=== PATIENT | female | born 1995 | race Caucasian/White ===

== ENCOUNTER 2018-07-18 20:48 | Outpatient (RCR) | payer OTHER, SELFPAY | END 2018-07-30 23:59 | disposition home or self-care (01) | LOC: NCHCN 20:48 | PROVIDERS: PCP Specialist/Technologist Athletic Trainer; Visit Provider Family Medicine | DX: N30.10 Interstitial cystitis (chronic) without hematuria (principal); N32.89 Other specified disorders of bladder | CPT/HCPCS: 87086 ==

== ENCOUNTER 2019-12-02 15:21 | Outpatient (CLI) | payer OTHER, SELFPAY ==
[2019-12-02 17:02] LABS: TSH (W/Ref FT4) 1.01 uIU/mL (0.36-3.74)
[2019-12-03 05:38] LABS: Vitamin D 25 Total 41.7 ng/ml (30-100)
== END 2019-12-02 15:41 ==
PROVIDERS: PCP Family Medicine; Visit Provider Nurse Practitioner Family
DX: F32.9 Major depressive disorder, single episode, unspecified (principal)
CPT/HCPCS: 36415; 82306; 84443

== ENCOUNTER 2020-03-24 02:56 | Outpatient (CLI) | payer OTHER, SELFPAY ==
[2020-03-24 15:01] LABS: Kit/Specimen SENT
[2020-03-24 15:32] LABS: Abs Immature Grans 0.02 k/cumm (0.0-0.09); Absolute Basophil Count 0.01 k/cumm (0.0-0.2); Absolute Lymphocyte Count 2.05 k/cumm (1.2-3.4); Absolute Monocyte Count 0.76 k/cumm (0.11-0.7); Basophils % 0.1; Eosinophils % 2.1; HCT 39.2 % (36.0-46.0); HGB 13.4 g/dL (12.0-15.5); Immature Grans % 0.2 %; Lymphocytes % 16.9; Mean Corp. HGB Concentration 34.2 g/dL (32.0-36.0); Mean Corpuscular Hemoglobin 28.9 pg (27.0-33.0); Mean Corpuscular Volume 84.7 fL (80-95); Mean Platelet Volume 10.8 fL (8.0-11.0); Monocytes % 6.3; Neutrophils % 74.4; Platelet Count 309 x1000/uL (130-400); RBC 4.63 m/cumm (4.00-5.20); RBC Distribution Width 12.5 % (11.7-14.6); White Blood Cell Count 12.14 k/cumm (4.4-10.8)
[2020-03-24 15:54] LABS: TSH (W/Ref FT4) 0.74 uIU/mL (0.36-3.74)
[2020-03-24 16:04] LABS: Absolute Eosinophil Count 0.25 k/cumm (0.0-0.7); Absolute Neutrophil Count 9.03 k/cumm (1.2-6.7)
[2020-03-24 17:11] LABS: *AMPHETAMINES SCREEN URINE Negative (Negative); *BARBITURATES SCREEN URINE Negative (Negative); *BENZODIAZEPINES SCREEN URINE Negative (Negative); Cannabinoids THC Negative (Negative); Cocaine Screen,Urine Negative (Negative); METHADONE URINE SCREEN Negative (Negative); OPIATES URINE SCREEN Negative (Negative)
[2020-03-24 17:13] LABS: Tricyclic Antidepressants POSITIVE (Negative)
[2020-03-25 09:36] LABS: Rubella IgG Ab (UVM) Negative (See Note); Varicella IgG Antibody Positive (See Note)
[2020-03-25 09:49] LABS: Hepatitis B Surface Ag Negative (Negative)
[2020-03-25 10:39] LABS: HIV-1/2 Ag & Ab Screen Negative (Negative); Hepatitis C Ab w Rflx HCV PCR Negative (Negative)
[2020-03-25 15:52] LABS: Chlamydia Result Negative (Negative); GC Result Negative (Negative)
[2020-03-26 14:13] LABS: Syphilis Total Ab w/Reflex Nonreactive (Nonreactive)
[2020-03-29 18:49] LABS: Buprenorphine Negative; Norbuprenorphine Negative
[2020-03-30 12:11] LABS: Specimen WB Whole Blood
[2020-03-31 14:29] LABS: Result Summary NEGATIVE; Specimen WB Whole Blood
== END 2020-03-24 03:16 ==
PROVIDERS: PCP Family Medicine; Visit Provider Advanced Practice Midwife
DX: Z34.91 Encounter for supervision of normal pregnancy, unspecified, first trimester (principal); Z11.3 Encounter for screening for infections with a predominantly sexual mode of transmission; Z11.4 Encounter for screening for human immunodeficiency virus [HIV]; Z11.59 Encounter for screening for other viral diseases; Z01.84 Encounter for antibody response examination; Z36.89 Encounter for other specified antenatal screening
CPT/HCPCS: 36415; 80307; 81329; 86787; 86803; 86850; 86900; 86901; 87340; 87389; 87491; 87591; 81220; 84443; 85025; 86762; 86780; 87086; 87480; 87510; 87660

== ENCOUNTER 2020-05-12 01:03 | Outpatient (CLI) | payer OTHER, SELFPAY ==
--- NOTE | 2020-05-12 06:30 | DI.US_ITS ---
EXAM: US OB 2-3 TRIMESTER CLINICAL HISTORY: 18 wk anatomy survey,z34.90. TECHNIQUE: Transabdominal obstetrical ultrasound performed. COMPARISON: US PELVIS TRANSVAG from 05/17/2016 FINDINGS: Transabdominal obstetrical ultrasound performed. FINDINGS: Number of fetuses: One. position: Cephalic heart rate: 141 bpm. Placental location: Anterior and to the left no evidence of previa. BIOMETRIC DATA: Composite Age: 18 weeks 2 days EDC: 10/11/2020 Amniotic fluid index: Visually, amount of fluid is within normal limits. ANATOMICAL SURVEY: The visualize anatomy are within normal limits. The four-chamber heart, justin tricular outflow tracts, nose and lips were not visualized. The patient is scheduled to return on for completion of the anatomic survey. BPD: 4.2cm HC: 15.7cm AC: 12.1cm FL: 2.7cm Cisterna Magna: 3.3 mm Cerebellum: 1.8 cm IMPRESSION: 1. Single live intrauterine gestation as above. 2. The patient is scheduled to return on 05/20/2020 for completion of the anatomic survey with i maging of the heart, face and right upper extremity. These structures could not be visualized on the date of this examination due to positioning. DATA REPOSITORY:
== END 2020-05-12 01:23 ==
PROVIDERS: PCP Family Medicine; Visit Provider Advanced Practice Midwife
DX: Z34.92 Encounter for supervision of normal pregnancy, unspecified, second trimester (principal); Z3A.18 18 weeks gestation of pregnancy
CPT/HCPCS: 76805

== ENCOUNTER 2020-05-12 03:01 | Outpatient (CLI) | payer OTHER, SELFPAY ==
[2020-05-13 17:11] LABS: Calculated age at EDD 24 years; Cigarette smoking status non-Smoker; GA used in risk estimate Scan estimate; IVF Pregnancy No; Initial or repeat testing Initial testing; Insulin dependent diabetes No; Maternal Weight 178 lbs; Number of Fetuses 1; Physician Phone Number 802-748-7300; Prev Pregnancy w/NTD No; RECOMMENDED FOLLOW UP None.; Results Summary Normal risk
== END 2020-05-12 03:21 ==
PROVIDERS: PCP Family Medicine; Visit Provider Advanced Practice Midwife
DX: Z34.92 Encounter for supervision of normal pregnancy, unspecified, second trimester (principal)
CPT/HCPCS: 36415; 82105

== ENCOUNTER 2020-05-14 08:57 | Emergency (ER) | payer OTHER, SELFPAY ==
--- NOTE | 2020-05-14 08:58 | ED.GENADUL_ITS ---
Discharge Plan Disposition Patient Disposition: HOME Condition: Good Discharge Details Chief Complaint: Cellulitis Clinical Impression: Pilonidal cyst Primary Care Provider: Karma Hunt V ED Provider: Yamilet Gutierres Home Meds and New Rx's Prescriptions: Continued metronidazole 500 mg tablet 500 mg PO BID Qty: 14 RF: 1 metronidazole 0.75 % cream 1 applic TP DAILY Qty: 1 RF: 1 prenat.vits,jim,zfa-cuqj-wmtqd Tablet 1 tab PO DAILY RF: 0 ondansetron HCl [Zofran] 8 mg tablet 8 mg PO Q8H Qty: 30 RF: 3 Discharge Instructions Instructions: Pilonidal Cyst (ED) Additional Instructions: Please keep the areas clean as possible. You may continue to cover with gauze. Please perform sits baths as discussed for the 5 times daily. Please monitor area closely for signs infection including redness, warmth, drainage, increased pain, fever/chills. If develop these or the new/worsening symptoms to seek care urgently once again. Otherwise, I would like for you to follow-up with women's wellness at the beginning of the week. Please call Saturday to schedule appointment. Stand Alone Forms: Work Release Referrals: Sandy Rahman MD [ [facility] STAFF PHYSICIAN] - Discharge Data Discharge Date/Time-TO BE ENTERED AT DEPARTURE: 05/14/20 10:41 Medical Decision Making Patient is a pleasant 25-year-old female presenting today with chief complaint of buttock pain. She reports the pain began approximately 4 days ago as progressively increasing. She indicates the upper aspect of her intergluteal cleft. Limits. She has a focal area of swelling that is displacing the left slightly. The area of swelling and fluctuance is 1 cm in diameter. She is exquisitely tender over this area and states she been having difficulty forming her activities of daily living secondary to this discomfort. She states she did take some Tylenol yesterday, has not taken any today. Patient is 19 weeks gestation. She reports normal thus far with no abdominal discomfort, cramping, vaginal bleeding. heart tones have by nursing staff to be in the 140s. Patient's exam and history is most concerning for an abscess. It does not appear to have any cellulitis surrounding. I did evaluate the area with ultrasound and I see area of swelling but I do not speciate any well-d efined area that is encapsulated. I am concerned for infection given the patient's severity of discomfort and feel that I&D of this area is most appropriate. I discussed this at length with the patient. She was understanding measures to proceed Using standard sterile technique, the area in question was prepped with chlorhexidine. Anesthetized the area with 1% lidocaine, she tolerated this well I did give sufficient anesthesia. Attempted to aspirate with needle was unsuccessful. Small incision with an 11 blade was then made a small amount of fluid was expressed from this area. Patient and I did discuss post I&D care in depth. I have encouraged close follow-up with women's wellness. She was given strict return precautions. As I do not see any evidence of surrounding cellulitis, do not feel that antibiotics are warranted at this point. All of her questions and concerns were addressed and she is in agreement this plan. HPI General Mode of arrival: ambulatory . Date/Time Provider Initiated Documentation: 05/14/20 08:57 . Limitations to Documentation: no limitations . Information obtained by: patient and RN notes reviewed . History of Present Illness 25 year old F presents to the emergency department with the chief complaint of buttock pain and swelling, described as moderate, with intensity rated at 5. Quality is described as aching, and is localized to the buttocks and left (fairly midline). Patient reports no radiation. Patient started experiencing this day(s) (3) and it has been constant. Immobilization improves symptom(s), (being off of it) Movement worsens symptoms . Patient notes other (no abdominal pain, vaginal bleeding or c ramping); denies fever/chills, loss of appetite and nausea/vomiting. Patient did receive the following treatments prior to arrival, none Related Data Home Medications Medication Instructions Recorded Confirmed prenat.vits,jim,tco-pfah-nmrnd 1 tab PO DAILY 03/09/20 05/14/20 ondansetron HCl 8 mg tablet 8 mg PO Q8H #30 tab 04/21/20 05/14/20 metronidazole 0.75 % topical cream 1 applic TP DAILY #1 gm 05/12/20 05/14/20 metronidazole 500 mg tablet 500 mg PO BID #14 tab 05/12/20 05/14/20 Previous Rx's Medication Instructions Recorded ondansetron HCl 8 mg tablet 8 mg PO Q8H #30 tab 04/21/20 metronidazole 0.75 % topical cream 1 applic TP DAILY #1 gm 05/12/20 metronidazole 500 mg tablet 500 mg PO BID #14 tab 05/12/20 Allergies Allergy/AdvReac Type Severity Reaction Status Date / Time No Known Drug Allergies Allergy Unverified 05/14/20 09:04 Review of Systems Constitutional Constitutional: Reports as per HPI, Denies chills and Denies fever(s) Gastrointestinal Gastrointestinal: Reports as per HPI Genitourinary Genitourinary: Reports as per HPI Musculoskeletal Musculoskeletal: Reports as per HPI Integumentary/Breasts Skin/Breast: Reports as per HPI, Reports skin pain and Reports skin swelling Neurologic Neurologic: Reports as per HPI, Denies sensory deficit and Denies paresthesias [facility] Medical History (Updated 05/14/20 @ 10:10 by MARINO Tavarez) Anxiety (Chronic) Depression (Chronic) Interstitial cystitis (Acute) Recurrent tonsillitis Surgical History (System 02/25/20 @ 11:35 by Hue Pollard) Tonsillectomy age 18yr wisdom teeth age 19yr Family History (Updated 03/24/20 @ 13:15 by Radha Ge CNM) Maternal Uncle Throat cancer Maternal Aunt Thyroid cancer Other FHx: throat cancer Social History Smoking/Tobacco Use Status: Never Alcohol Intake: former Drug use: Never Substance use type: does not use Do you feel safe at home: Yes Do you feel safe in your relationship?: Yes History History 1 Para 0 Hx # Term Pregnancies 0 Multiple births 0 Hx # Pregnancies 0 Ectopic pregnancies 0 AB induced 0 Hx Number of Living Children 0 AB spontaneous 0 Exam Const General: cooperative, healthy appearing, comfortable, no acute distress and well developed Nutritional Appearance: average body habitus and well nourished Orientation: alert and awake Resp Effort & Inspection: normal respiratory effort, able to speak in complete sentences and no respiratory distress Cardio Rate: regular rate Rhythm: regular rhythm GI Inspection: normal to inspection (normal for gestational age) Back/Spine/Pelvis Back/spine/pelvis image: 1. Focal area of swelling and fluctuance approximately 1 cm in diameter. This is quite tender to the patient. No erythema, warmth, discharge. Skin General skin exam: no erythema and fluctuance Neuro General: patient alert and patient awake Cognition: normal cognition Speech: speech normal Gait: normal gait Sensory Exam: no sensory deficits noted Psych Appearance: grossly normal and well kempt Mental Status: mental status grossly normal Speech and Movement: speech and movement normal Procedures Abscess I/D Site: Lorin-rectal Side (if applicable): Left Local Anesthetic: Lidocaine 1% Amount of anesthesia used (mL): 3 Technique: Needle Aspiration and Incised with #11 Blade Amount of fluid expressed (mL): 1 Irrigation: Yes Packing used?: None Complications: Other (none)
[2020-05-14 09:01] VITALS: BP 110/70; PULSE 90; RESP 18; TEMP 36.6; O2SAT 97
[2020-05-14] MEDS: Acetaminophen 500 MG TAB 1000 MG PO (09:36)
[2020-05-14 10:20] VITALS: BP 114/62; PULSE 90; RESP 16; TEMP 37; O2SAT 99
== END 2020-05-14 10:41 | disposition home or self-care (01) ==
PROVIDERS: Emergency Provider Physician Assistant; PCP Family Medicine
DX: L05.91 Pilonidal cyst without abscess (principal); Z3A.19 19 weeks gestation of pregnancy
CPT/HCPCS: 10060

== ENCOUNTER 2020-05-16 12:41 | Day surgery (SDC) | payer OTHER, SELFPAY ==
[2020-05-16] VITALS (14 sets, daily range): BP systolic 75–115; BP diastolic 24–68; PULSE 83–122; RESP 16–29; TEMP 36.7–37.9; O2SAT 96–99
--- NOTE | 2020-05-16 13:15 | DI.US_ITS ---
EXAM: US SOFT TISS BUTTOCK/PERINEUM CLINICAL HISTORY: pilonidal cyst. TECHNIQUE: Ultrasound was performed using standard protocol. COMPARISON: No exams were available for comparison FINDINGS: Sonographic assessment utilizing grayscale and color Doppler imaging was performed and targeted to th e area of clinical concern. In the subcutaneous fat of the gluteal crease, there is a hypoechoic area measuring 2.9 by 6.2 x 2 cm . It is avascular. The findings are consistent with a pilonidal cyst. Superimposed abscess cannot be excluded. IMPRESSION: Pilonidal cyst. DATA REPOSITORY:
--- NOTE | 2020-05-16 13:23 | ED.GENADUL_ITS ---
Discharge Plan Disposition Patient Disposition: [facility] INPATIENT Condition: Stable Discharge Details Chief Complaint: Cellulitis Clinical Impression: Pilonidal cyst Attending Provider: Rebecca Anderson Primary Care Provider: Karma Hunt V ED Provider: Selena Ruiz Discharge Data Discharge Date/Time-TO BE ENTERED AT DEPARTURE: 05/16/20 16:29 Medical Decision Making At this time labs ordered including CBC, CMP, lactate blood cultures and an ultrasound of soft tissue to evaluate possible abscess. IV ceftriaxone ordered. Will consult with DOG LICENSE OFFICER SUPERVISOR and possibly general surgery regarding patient. 1446: Spoke with Dr. Rahman with DOG LICENSE OFFICER SUPERVISOR on-call regarding patient and ultrasound results and labs discussed with her, she states that patient should be fine to undergo local anesthesia or even general anesthesia due to size of f luid collection. She reports that she will be available for consult for any further questions or concerns. Will page general surgery. Dr. Anderson continuous improvement manager. EXAM: US SOFT TISS BUTTOCK/PERINEUM CLINICAL HISTORY: pilonidal cyst. TECHNIQUE: Ultrasound was performed using standard protocol. COMPARISON: No exams were available for comparison FINDINGS: Sonographic assessment utilizing grayscale and color Doppler imaging was performed and targeted to the area of clinical concern. In the subcutaneous fat of the gluteal crease, there is a hypoechoic area measuring 2.9 by 6.2 x 2 cm. It is avascular. The findings are consistent with a pilonidal cyst. Superimposed abscess cannot be excluded. IMPRESSION: Pilonidal cyst. 1454: Spoke with Dr. Hill with general surgery who agrees to come and evaluate patient in department and approximately 20 minutes. 1548: Dr. Anderson general surgeon here in department for patient evaluation, she does report that patient will go to the OR and possibly be admitted from there. Patient agrees to do spinal anesthesia and I&D of pilonidal cyst. Plan is for patient to go to the OR. Blood pressure per RN report is 92 systolic while side-lying, 1 L normal saline IV bolus ordered and is infusing prior to patient being discharged from the ER to OR. Differential diagnosis includes perirectal abscess versus simple pilonidal cyst. HPI General Mode of arrival: ambulatory . Date/Time Provider Initiated Documentation: 05/16/20 13:08 . Limitations to Documentation: no limitations . Information obtained by: patient and old records reviewed . HPI Narrative: 25-year-old female presents the ER chief complaint of pilonidal cyst which is gotten worse, worsening erythema and tenderness since being seen on Saturday. Patient was seen here on Saturday and an incision was made an attempt to drain with little output. Patient is approximately 19 weeks she is a prima . Denies any problems with bowel movements or dysuria no vaginal discharge or vaginal bleeding. She reports diaphoresis last night sweating but did not take her temperature. She reports never having a cyst in this area before but has had an abscess to her arm in the past. Related Data Home Medications Medication Instructions Recorded Confirmed prenat.vits,jim,vda-pmiz-vavse 1 tab PO DAILY 03/09/20 05/16/20 ondansetron HCl 8 mg tablet 8 mg PO Q8H #30 tab 04/21/20 05/16/20 metronidazole 0.75 % topical cream 1 applic TP DAILY #1 gm 05/12/20 05/16/20 metronidazole 500 mg tablet 500 mg PO BID #14 tab 05/12/20 05/16/20 acetaminophen 1,000 mg PO Q6H PRN 05/16/20 05/16/20 Previous Rx's Medication Instructions Recorded ondansetron HCl 8 mg tablet 8 mg PO Q8H #30 tab 04/21/20 metronidazole 0.75 % topical cream 1 applic TP DAILY #1 gm 05/12/20 metronidazole 500 mg tablet 500 mg PO BID #14 tab 05/12/20 Allergies Allergy/AdvReac Type Severity Reaction Status Date / Time No Known Drug Allergies Allergy Unverified 05/16/20 13:17 General Stated Complaint: RashLesion BRITTANY: 3 Review of Systems Narrative: Constitutional: Negative for weight loss, alert and oriented, well groomed, normal body habitus, appears comfortable. Positive diaphoresis. HEENT: Denies trauma, headaches, blurry vision, nasal discharge, sore throat, trouble swallowing. Chest: Denies chest pain, palpitations, irregular rhythm, hypertension. Respiratory: Denies Shortness of breath, cough, hemoptysis. GI: Denies abdominal pain, nausea, vomiting, diarrhea, constipation. : Denies dysuria, hematuria, flank pain, rectal bleeding. Denies any mucus in her stool. Reports tenderness noted to her coccyx area and intergluteal folds status post I&D on Saturday. Neuro: Denies dizziness, blurry vision, weakness, syncope, headache or facial numbness. Hematologic: Denies easy bruising, intolerance to heat or cold, hair loss. [facility] Medical History Anxiety (Chronic) Depression (Chronic) Interstitial cystitis (Acute) Recurrent tonsillitis Surgical History Tonsillectomy age 18yr wisdom teeth age 19yr Family History Maternal Uncle Throat cancer Maternal Aunt Thyroid cancer Other FHx: throat cancer Social History Smoking/Tobacco Use Status: Never Alcohol Intake: former Drug use: Never Substance use type: does not use Do you feel safe at home: Yes Do you feel safe in your relationship?: Yes History History 1 Para 0 Hx # Term Pregnancies 0 Multiple births 0 Hx # Pregnancies 0 Ectopic pregnancies 0 AB induced 0 Hx Number of Living Children 0 AB spontaneous 0 Exam Narrative Exam Narrative: Constitutional: Alert and oriented x3. Appears stated age. Normal body habitus. Head: Normocephalic, no trauma. Eyes: Pupils PERRLA, Red reflex noted, EOM's intact. Eyelids symmetrical without lesions, discharge, or swelling. ENT: Bilateral TM's WNL, External ear normal to inspection, no mastoid TTP, swelling, or erythema, Nasal turbinates WNL, no nasal discharge. Normal dentition, Posterior pharynx WNL, no exudate. Chest: RRR, Normal S1, S2, distal pulses intact. Resp: Lungs clear to auscultation bilaterally, no wheezes, rales, or rhonchi. Abdomen: Consistent with 19-week Musculoskeletal: Normal gait, 5/5 strength to all four extremities. Skin: Area of induration noted to the coccyx there is erythema extending up towards the patient's sacrum which patient reports is new does have tenderness with palpation. No obvious area of fluctuance palpated no drainage noted. Capillary refill less than 2 sec. Neurologic: Cranial nerves II-XII intact. Alert and oriented x 3. DTR's intact. Hematologic/Lymphatic: No ecchymosis, no lymphadenopathy. Course Vital Signs Vital signs: Vital Signs Temperature 36.7 C 05/16/20 13:00 Pulse 111 H 05/16/20 13:00 Respiratory Rate 16 05/16/20 13:00 Blood Pressure 100/54 L 05/16/20 13:00 Pulse Oximetry 99 05/16/20 13:00 Temperature 36.7 C 05/16/20 13:00 Temperature Source Skin 05/16/20 13:00 Pulse 111 H 05/16/20 13:00 Respiratory Rate 16 05/16/20 13:00 Respiratory Effort 05/16/20 13:05 Blood Pressure 100/54 L 05/16/20 13:00 Pulse Oximetry 99 05/16/20 13:00 Oxygen Delivery Method Room Air 05/16/20 13:00 Oxygen Flow Rate 0 05/16/20 13:00 Pain Level 9 05/16/20 13:00 Lab/Test Results Lab/Test Results: 05/16/20 13:19 Blood Blood Culture - Pending 05/16/20 13:19 Blood Blood Culture - Pending
[2020-05-16 14:23] LABS: Lactate 0.7 mmol/L (0.6-1.4)
[2020-05-16 14:26] LABS: Abs Immature Grans 0.07 10^3/uL (0.0-0.06); Absolute Basophil Count 0.01 10^3/uL (0.0-0.2); Absolute Eosinophil Count 0.01 10^3/uL (0.0-0.7); Absolute Monocyte Count 0.89 10^3/uL (0.1-0.8); Absolute Neutrophil Count 10.99 10^3/uL (1.2-6.7); Basophils % 0.1; Eosinophils % 0.1; HCT 32.5 % (36.0-46.0); HGB 11.1 g/dL (11.2-15.7); Immature Grans % 0.5; MCH 29.3 pg (27.0-33.0); MCHC 34.2 % (32.0-36.0); MCV 85.8 fL (80-95); MPV 10.8 fL (8.0-11.0); Monocytes % 6.9; Neutrophils % 85.4; Nucleated RBC 0 %; Platelet Count 207 10^3/uL (130-400); RBC 3.79 10^6/uL (3.93-5.22); RDW 12.9 % (11.7-14.6); RDW-SD 40.3 fL; WBC 12.87 10^3/uL (4.4-10.8)
[2020-05-16 14:36] LABS: Anion Gap 13.2 mmol/L (3-11); BUN 6 mg/dL (7-18); CO2 19.8 mmol/L (21.0-32.0); CREATININE 0.51 mg/dL (0.55-1.02); Calcium 8.5 mg/dL (8.5-10.1); Chloride 104 mmol/L (98-107); Glucose 97 mg/dL (74-106); Potassium 3.1 mmol/L (3.5-5.1); Sodium 137 mmol/L (136-145)
[2020-05-16] MEDS: cefTRIAXone 1 GM/50 ML BAG IVPB (14:51)
[2020-05-16] MEDS: Normal Saline 1,000 ML 1000 ML IV (16:19)
--- NOTE | 2020-05-16 16:28 | W.PM.HP.N ---
Date of service: 05/16/20 Time of Service: 16:28 Assessment and Plan Assessment and plan (1) Pilonidal abscess: Status: Acute Assessment and plan: Her presentation is unusual in that she has no cutaneous changes. With the US findings of a deep abscess and her degree of pain, I recommend I and D in the operating room. Will proceed with spinal due to . The risks of bleeding, recurrence discussed. The wound will need to be left open for packing. She agrees to proceed. History of Present Illness Narrative: This patient returned to the ER with significant pain at the top of the gluteal cleft. She has been unable to sleep. She presented two days ago with similar pain. Limited attempt at I and D did not yield any drainage. US today shows and 6cm SQ fluid collection in the region. Review of Systems All systems reviewed & are unremarkable except as noted in HPI and below PFSH Medical History Anxiety (Chronic) Depression (Chronic) Interstitial cystitis (Acute) Recurrent tonsillitis Surgical History Tonsillectomy age 18yr wisdom teeth age 19yr Family History Maternal Uncle Throat cancer Maternal Aunt Thyroid cancer Other FHx: throat cancer Social History Smoking/Tobacco Use Status: Never Alcohol Intake: former Drug use: Never Substance use type: does not use Do you feel safe at home: Yes Do you feel safe in your relationship?: Yes History History 1 Para 0 Hx # Term Pregnancies 0 Multiple births 0 Hx # Pregnancies 0 Ectopic pregnancies 0 AB induced 0 Hx Number of Living Children 0 AB spontaneous 0 Meds Home Medications and Allergies Home Medications Medication Instructions Recorded Confirmed Type prenat.vits,jim,nvl-xanj-eggcg 1 tab PO DAILY 03/09/20 05/16/20 History ondansetron HCl 8 mg tablet 8 mg PO Q8H #30 tab 04/21/20 05/16/20 Rx metronidazole 0.75 % topical cream 1 applic TP DAILY #1 gm 05/12/20 05/16/20 Rx metronidazole 500 mg tablet 500 mg PO BID #14 tab 05/12/20 05/16/20 Rx acetaminophen 1,000 mg PO Q6H PRN 05/16/20 05/16/20 History Allergies Allergy/AdvReac Type Severity Reaction Status Date / Time No Known Drug Allergies Allergy Unverified 05/16/20 13:17 Exam Narrative Exam Narrative: Appears flushed, uncomfortable Extremely tender to palpation of soft tissue at top of gluteal cleft, more prominent on the left side. No cellulitis or pointing abscess present Prior I and D site healed Results Labs Result diagrams: 05/16/20 14:09 05/16/20 14:09 Labs: Laboratory Results - last 24 hr 05/16/20 05/16/20 05/16/20 14:09 14:09 14:09 WBC 12.87 H RBC 3.79 L Hgb 11.1 L Hct 32.5 L MCV 85.8 MCH 29.3 MCHC 34.2 RDW 12.9 Plt Count 207 MPV 10.8 Immature Gran % 0.5 Neutrophils % 85.4 Lymphocytes % 7.0 Monocytes % 6.9 Eosinophils % 0.1 Basophils % 0.1 Absolute Neutrophils 10.99 H Absolute Lymphocytes 0.90 L Absolute Monocytes 0.89 H Absolute Eosinophils 0.01 Absolute Basophils 0.01 Sodium 137 Potassium 3.1 L Chloride 104 Carbon Dioxide 19.8 L Anion Gap 13.2 H BUN 6 L Creatinine 0.51 L Estimated GFR/1.73 m2 >= 60.00 Glucose 97 Lactate 0.7 Calcium 8.5 Last Vital Signs Temp 99.3 F 05/16/20 16:08 Pulse 107 H 05/16/20 16:08 Resp 18 05/16/20 16:08 BP 92/50 L 05/16/20 16:08 Pulse Ox 97 05/16/20 16:08 COVID-19 Screening Have you,or household,traveled outside [place] in last 14 days?: No Had IN PERSON contact w/suspected or confirmed C-19 person: No
--- NOTE | 2020-05-16 16:41 | PDOC.DSDIS_ITS ---
Discharge Plan Disposition Patient Disposition: HOME Condition: Good Discharge Details Chief Complaint: Cellulitis Clinical Impression: Pilonidal cyst Reason For Visit: Incision and drainage of pilonidal abscess Attending Provider: Rebecca Anderson Primary Care Provider: Karma Hunt V ED Provider: Selena Ruiz Home Meds and New Rx's Prescriptions: New amoxicillin-pot clavulanate [Augmentin] 875-125 mg tablet 1 tab PO BID Qty: 10 RF: 0 Continued metronidazole 500 mg tablet 500 mg PO BID Qty: 14 RF: 1 metronidazole 0.75 % cream 1 applic TP DAILY Qty: 1 RF: 1 prenat.vits,jim,rap-apnl-knyyn Tablet 1 tab PO DAILY RF: 0 ondansetron HCl [Zofran] 8 mg tablet 8 mg PO Q8H Qty: 30 RF: 3 acetaminophen 500 mg Capsule 1,000 mg PO Q6H PRNRF: 0 Discharge Instructions Additional Instructions: The top gauze can be replaced as needed. A small amount of bleeding is expected. Pack the wound daily using sterile Q tips and the packing gauze provided. You may remove the packing and allow water from the shower to run into the wound. Call for any concerns including fever or increased pain. Walking and stairs are fine. Do not drive if on narcotic pain meds or if limited by pain. May use Tylenol for pain control. Ice is also an option. The maximum dose for Tylenol is 4000 mg/day. If concerned about constipation, you may use a stool softener or milk of magnesia. Referrals: Rebecca Anderson MD [ [facility] STAFF PHYSICIAN] - (Call the office for an appointment this or Saturday ) Activity:: Activity as Tolerated Remove Dressings/Wound Care:: 24 hours Shower/Bathe:: 24 hours Diet:: As Tolerated DS: Diagnosis Discharge Diagnosis (1) Pilonidal abscess: Status: Acute
--- NOTE | 2020-05-16 16:47 | W.PM.OP ---
Date of service: 05/16/20 Time of Service: 17:19 Operative Note Operative Note DATE OF PROCEDURE: 05/16/20 PRE-OP DIAGNOSIS: Pilonidal abscess POST-OP DIAGNOSIS: same PROCEDURE: Incision and drainage of pilonidal abscess SURGEON: Rebecca Anderson ANESTHESIA: spinal Patient was transported to: PACU Indications: This 25 year old patient, 19 weeks , presents with significant pain at the top of the gluteal cleft without any cutaneous changes. US showed a 6cm SQ fluid collection. She was taken to the operating room for I and D. Procedure Description: The patient was taken to the operating room and had placement of a spinal anesthetic. She was then positioned onto her left side. The top of the gluteal cleft was just starting to show some mild erythema slightly to the left of midline. This area was prepped and draped sterilely. The spinal was tested with good anesthesia. The spinal needle was used to access the abscess which was quite deep. The fluid was sent for aerobic and anaerobic cultures. A 2 cm long incision was made at the same location and a large amount of purulent fluid released. The cavity was probed with a hemostat and extended across the midline over to the patient's right side and also extended down the midline to meet up with the most distal skin pit. She had at least 4 pits in the midline that extended over a distance of 4cm. The abscess was probably 6 cm in size. The wound was then packed with 1 inch gauze and topped with 4 x 4's. She tolerated the procedure well and was stable to recovery.
[2020-05-16] MEDS: Acetaminophen 325 MG TAB 650 MG PO (20:03)
[2020-05-17 02:16] LABS: COVID-19 RT-PCR UVMMC Result Negative (Negative)
== END 2020-05-16 20:23 | disposition home or self-care (01) ==
LOC: ER 15:50 → DSU 16:15 → MS 18:35
PROVIDERS: Student in an Organized Health Care Education/Training Program; Emergency Provider Registered Nurse Emergency; PCP Family Medicine; Visit Provider Surgery
PROC: (CPT 10080; principal; 2020-05-16 15:40)
DX: O26.892 Other specified pregnancy related conditions, second trimester (principal); L05.01 Pilonidal cyst with abscess; Z11.59 Encounter for screening for other viral diseases
CPT/HCPCS: 10080; 36415; 76857; 80048; 87040; 87077; 96361; 96365; 99223; 99285; U0003; 83605; 85025; 87070; 87075; 87205; 99284; J0696; J2370

== ENCOUNTER 2020-05-20 03:47 | Outpatient (CLI) | payer OTHER, SELFPAY ==
--- NOTE | 2020-05-20 13:45 | DI.US_ITS ---
EXAM: US OB F/U FACIAL/LVOT/RVOT CLINICAL HISTORY: F/U SURVEY,HEART,LVOT,RVOT,NOSE LIPS,RT ARM. TECHNIQUE: Transabdominal obstetrical ultrasound performed. COMPARISON: US US OB 2-3 TRIMESTER from 05/12/2020 US US SOFT TISS BUTTOCK/PERINEUM from 05/16/2020 12 May 2020 FINDINGS: Transabdominal obstetrical ultrasound performed. The patient returned for additional imaging to visualize the heart and face. FINDINGS: Number of fetuses: One. position: Variable heart rate: 133 bpm. Placental location: Anterior no evidence of previa. BIOMETRIC DATA: ANATOMICAL SURVEY: Within normal limits. Four-chamber view LVOT and RVOT appear normal. nose lips and palate appear normal. IMPRESSION: survey is within normal limits. DATA REPOSITORY:
== END 2020-05-20 04:07 ==
PROVIDERS: PCP Family Medicine; Visit Provider Advanced Practice Midwife
DX: Z34.92 Encounter for supervision of normal pregnancy, unspecified, second trimester (principal)
CPT/HCPCS: 76815

== ENCOUNTER 2020-06-09 13:08 | Outpatient (REF) | payer OTHER, SELFPAY | END 2020-06-09 13:28 | LOC: LBN 13:08 | PROVIDERS: PCP Family Medicine; Visit Provider Advanced Practice Midwife | DX: N76.0 Acute vaginitis (principal); B96.89 Other specified bacterial agents as the cause of diseases classified elsewhere | CPT/HCPCS: 87480; 87510; 87660 ==

== ENCOUNTER 2020-07-07 16:14 | Outpatient (REF) | payer OTHER, SELFPAY | END 2020-07-07 16:34 | LOC: LBN 16:14 | PROVIDERS: PCP Family Medicine; Visit Provider Advanced Practice Midwife | DX: O26.893 Other specified pregnancy related conditions, third trimester (principal); R30.0 Dysuria | CPT/HCPCS: 87077; 87086; 87186; 87480; 87510; 87660 ==

== ENCOUNTER 2020-07-20 02:55 | Outpatient (CLI) | payer OTHER, SELFPAY ==
[2020-07-20 11:41] LABS: HGB 11.9 g/dL (11.2-15.7); MCH 29.4 pg (27.0-33.0); MCV 86.4 fL (80-95); MPV 10.5 fL (8.0-11.0); Platelet Count 275 10^3/uL (130-400); RBC 4.05 10^6/uL (3.93-5.22); RDW 12.5 % (11.7-14.6); RDW-SD 39.5 fL; WBC 11.39 10^3/uL (4.4-10.8)
[2020-07-20 11:49] LABS: Glucose,1 Hr (Glucola) 106 mg/dL (80-140)
== END 2020-07-20 03:15 ==
PROVIDERS: Advanced Practice Midwife; PCP Family Medicine; Visit Provider Advanced Practice Midwife
DX: Z34.93 Encounter for supervision of normal pregnancy, unspecified, third trimester (principal)
CPT/HCPCS: 36415; 82950; 85027; 86850; 90384

== ENCOUNTER 2020-07-25 20:51 | Emergency (ER) | payer OTHER, SELFPAY ==
--- NOTE | 2020-07-25 20:52 | W.ED.GENAD ---
Discharge Plan Disposition Patient Disposition: HOME Condition: Fair Discharge Details Clinical Impression: C. difficile diarrhea, UTI (urinary tract infection) Primary Care Provider: Karma Hunt V ED Provider: Yamilet Gutierres Home Meds and New Rx's Prescriptions: New cephalexin 500 mg capsule 500 mg PO BID Qty: 8 RF: 0 vancomycin 125 mg capsule 125 mg PO QID 10 Days Qty: 38 RF: 0 Continued ondansetron HCl 8 mg tablet 8 mg PO DAILY RF: 0 prenat.vits,jim,rpq-jsvo-squmw Tablet 1 tab PO DAILY RF: 0 Discharge Instructions Instructions: Cephalexin (By mouth), Vancomycin (By mouth), Urinary Tract Infection in Women (ED), C Diff (Clostridium Difficile) Infection (ED) Additional Instructions: As discussed, you have a C. difficile infection which is causing your diarrhea. Please encourage water intake as this can lead to dehydration quite quickly. Please take the antibiotics as prescribed. Even if symptoms improve, please take the entire course. The oral vancomycin is to treat your C. difficile infection. You also have a urinary tract infection is persisting, please take the Keflex as prescribed for this. Please call your CALL OR CONTACT CENTRE MANAGER tomorrow to schedule follow-up appointment. If you develop fever/chills, increased pain, vaginal bleeding, back pain, inability stay hydrated or other new/worsening symptoms please seek care urgently once again. Stand Alone Forms: Work Release Referrals: Karma Hunt MD [Primary Care Provider] - Alvina Duenas DO [OSTEOPATHIC DOCTOR] - Discharge Data Discharge Date/Time-TO BE ENTERED AT DEPARTURE: 07/25/20 23:40 Medical Decision Making Patient is a pleasant 25-year-old female presented with chief complaint of diarrhea. She reports the diarrhea began over the past 3 to 4 days. Reports 7 watery bowel movements today. She denies any fevers or chills. States that she can have some lower abdominal cramping just prior to and during bowel movements but otherwise her abdomen has been nontender. Denies any nausea vomiting. No change in appetite. Patient is 28 weeks gestation. Was recently treated with Macrobid for a UTI. Prior to that, patient had been on Flagyl for BV. She denies any vaginal discharge. Denies any dysuria, hematuria or increased urgency/frequency. On exam, patient appears nontoxic. She appears well-hydrated although she is slightly tacky cardiac. No CVA tenderness, abdominal exam is benign appropriate for gestational age. heart tones in the 130s. Labs reviewed. No significant abnormality. She does continue to have persistent UTI evidence. Plan to treat based on current up-to-date guidelines. Patient is positive for C. difficile. I discussed this with the patient at length. 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 Spoke with Dr. Duenas regarding patients current presentation and antibiotic. Advised that oral vancomycin would be appropriate. Discussed with patient. Advised frequent hand washing. Work note given. She is tolerating PO hydration. Will also treat UTI with Keflex. Encouraged close f/u with CALL OR CONTACT CENTRE MANAGER. Return precautions given. All of her quesitons and concerns were addressed, she is in agreement with this plan. HPI General Mode of arrival: ambulatory. Date/Time Provider Initiated Documentation: 07/25/20 20:51. Limitations to Documentation: no limitations. Information obtained by: patient. History of Present Illness 25 year old F presents to the emergency department with the chief complaint of diarrhea, described as moderate (reports 7 watery BM today. Lower abdomen cramping with BM, none currently), Quality is described as other (cramping), and is localized to the abdomen. Patient reports no radiation. Patient started experiencing this day(s) (3) and it has been constant. No relieving factors improve symptom(s), No exacerbating factors reported . Patient notes no other symptoms.; denies chest pain, cough, diaphoresis, fever/chills, loss of appetite, nausea/vomiting, rash, shortness of breath and weakness. Patient did receive the following treatments prior to arrival, none Related Data Home Medications Medication Instructions Recorded Confirmed prenat.vits,jim,pak-ufkb-dhapi 1 tab PO DAILY 03/09/20 07/25/20 ondansetron HCl 8 mg tablet 8 mg PO DAILY tab 06/09/20 07/25/20 cephalexin 500 mg PO BID #8 cap 07/25/20 vancomycin 125 mg PO QID 10 Days #38 cap 07/25/20 Previous Rx's Medication Instructions Recorded cephalexin 500 mg PO BID #8 cap 07/25/20 vancomycin 125 mg PO QID 10 Days #38 cap 07/25/20 Allergies Allergy/AdvReac Type Severity Reaction Status Date / Time No Known Drug Allergies Allergy Unverified 10/21/20 10:37 General BRITTANY: 3 Review of Systems Constitutional Constitutional: Reports as per HPI, Denies chills, Denies fatigue, Denies fever(s) and Denies headache(s) ENT Ears, Nose, Mouth, and Throat: Denies headache(s) Cardiovascular Cardiovascular: Reports as per HPI, Denies chest pain and Denies dyspnea Respiratory Respiratory: Reports as per HPI, Denies cough and Denies dyspnea Gastrointestinal Gastrointestinal: Reports as per HPI Musculoskeletal Musculoskeletal: Reports as per HPI and Denies back pain Integumentary/Breasts Skin/Breast: Reports as per HPI and Denies rash Neurologic Neurologic: Reports as per HPI and Denies headache(s) Endocrine Endocrine: Denies fatigue [facility] Medical History (Updated 07/25/20 @ 23:23 by MARINO Tavarez) Anxiety Bacterial vaginosis Depression Interstitial cystitis Recurrent tonsillitis Surgical History Tonsillectomy age 18yr wisdom teeth age 19yr Family History Maternal Uncle Throat cancer Maternal Aunt Thyroid cancer Other FHx: throat cancer Social History Smoking/Tobacco Use Status: Never Alcohol Intake: former Drug use: Never Substance use type: does not use Do you feel safe at home: Yes Do you feel safe in your relationship?: Yes History History 1 Para 0 Hx # Term Pregnancies 0 Multiple births 0 Hx # Pregnancies 0 Ectopic pregnancies 0 AB induced 0 Hx Number of Living Children 0 AB spontaneous 0 Exam Const General: cooperative, healthy appearing, comfortable, no acute distress and well developed Nutritional Appearance: average body habitus and well nourished Orientation: alert and awake HENMT Head: normal to inspection Mouth: moist mucous membranes Resp Effort & Inspection: normal respiratory effort, able to speak in complete sentences and no respiratory distress Auscultation: clear to auscultation bilaterally, no rales, no rhonchi and no wheezes Cardio Rate: regular rate Rhythm: regular rhythm Heart Sounds: S1 normal and S2 normal GI Inspection: normal to inspection (normal for gestational age) Palpation: soft, not firm, no guarding, no masses, not rigid and nontender Back/Spine/Pelvis Back: no CVA tenderness Skin General skin exam: no rashes or lesions noted Trauma: no lacerations or abrasions Neuro General: patient alert and patient awake Cognition: normal cognition Speech: speech normal Gait: normal gait Psych Appearance: grossly normal and well kempt Mental Status: mental status grossly normal Speech and Movement: speech and movement normal
[2020-07-25 20:58] VITALS: BP 115/64; PULSE 102; RESP 18; TEMP 36.6; O2SAT 96
[2020-07-25] MEDS: Lactated Ringers 1,000 ML 1000 ML IV (21:10)
[2020-07-25 21:35] LABS: Bilirubin Negative (Negative); Blood Negative (Negative); Clarity Clear (Clear); Glucose Negative (Negative); Ketones Negative (Negative); Leukocyte Esterase Moderate (Negative); Nitrite Negative (Negative); Urobilinogen 0.2 EU/dL (Up TO 0.2); pH 6.5 (5-8)
[2020-07-25 21:47] LABS: Bacteria Moderate HPF (Negative); C & S Indicated? Yes; Casts Negative LPF (Negative); Crystals Negative HPF (Negative); Epithelial Cells Few HPF (Negative); Mucus Negative (Negative); RBC 0-2 HPF (0-2)
[2020-07-25 21:48] LABS: Abs Immature Grans 0.03 10^3/uL (0.0-0.06); Absolute Basophil Count 0.02 10^3/uL (0.0-0.2); Absolute Eosinophil Count 0.15 10^3/uL (0.0-0.7); Absolute Monocyte Count 1.12 10^3/uL (0.1-0.8); Absolute Neutrophil Count 6.02 10^3/uL (1.2-6.7); Basophils % 0.2; Eosinophils % 1.5; HCT 34.8 % (36.0-46.0); Immature Grans % 0.3; Lymphocytes % 27.6; MCH 29.4 pg (27.0-33.0); MCHC 34.5 % (32.0-36.0); MCV 85.3 fL (80-95); MPV 10.2 fL (8.0-11.0); Neutrophils % 59.4; Nucleated RBC 0 %; Platelet Count 274 10^3/uL (130-400); RBC 4.08 10^6/uL (3.93-5.22); RDW 12.7 % (11.7-14.6); RDW-SD 39.1 fL; WBC 10.14 10^3/uL (4.4-10.8)
[2020-07-25 22:10] LABS: ALT 44 U/L (14-59); AST 32 U/L (15-37); Albumin 2.7 g/dL (3.4-5.0); Alkaline Phosphatase 48 U/L (46-116); Anion Gap 8.9 mmol/L (3-11); BUN 6 mg/dL (7-18); Bilirubin, Total 0.3 mg/dL (0.2-1.0); CO2 21.1 mmol/L (21.0-32.0); CREATININE 0.46 mg/dL (0.55-1.02); Calcium 8.6 mg/dL (8.5-10.1); Chloride 105 mmol/L (98-107); Glucose 80 mg/dL (74-106); Potassium 3.5 mmol/L (3.5-5.1); Sodium 135 mmol/L (136-145); Total Protein 6.7 g/dL (6.4-8.2)
--- NOTE | 2020-07-25 22:40 | NUR.NOTE ---
Nursing Note: POSITIVE RESULT FOR CDIFF ANTOGEN AND TOX
[2020-07-25] MEDS: Cephalexin 500 MG CAP 1000 MG PO (23:35)
[2020-07-25] MEDS: Vancomycin 125 MG CAP 250 MG PO (23:36)
[2020-07-25 23:39] VITALS: BP 104/54; PULSE 85; RESP 16; TEMP 36.7; O2SAT 96
== END 2020-07-25 23:40 | disposition home or self-care (01) ==
PROVIDERS: Emergency Provider Physician Assistant; PCP Family Medicine
DX: O98.913 Unspecified maternal infectious and parasitic disease complicating pregnancy, third trimester (principal); A04.72 Enterocolitis due to Clostridium difficile, not specified as recurrent; N39.0 Urinary tract infection, site not specified; Z3A.28 28 weeks gestation of pregnancy
CPT/HCPCS: 80053; 87493; 99283; 81003; 81015; 83630; 83735; 85025; 87086; 87324

== ENCOUNTER 2020-08-03 11:43 | Outpatient (REF) | payer OTHER, SELFPAY | END 2020-08-03 12:03 | LOC: LBN 11:43 | PROVIDERS: PCP Family Medicine; Visit Provider Advanced Practice Midwife | DX: N89.8 Other specified noninflammatory disorders of vagina (principal) | CPT/HCPCS: 87480; 87510; 87660 ==

== ENCOUNTER 2020-08-26 17:41 | Emergency (ER) | payer OTHER, SELFPAY ==
[2020-08-26 17:47] VITALS: BP 99/72; PULSE 103; RESP 14; TEMP 36.8; O2SAT 97
--- NOTE | 2020-08-26 18:41 | W.ED.GENAD ---
Discharge Plan Disposition Patient Disposition: HOME Discharge Details Clinical Impression: Pilonidal cyst Primary Care Provider: Karma Hunt V ED Provider: Pooja Torres Home Meds and New Rx's Prescriptions: Continued prenat.vits,jim,[id number]-[id number] Tablet 1 tab PO DAILY RF: 0 ondansetron HCl 8 mg tablet 8 mg PO DAILY Qty: 30 RF: 3 Discharge Instructions Instructions: Pilonidal Cyst (ED) Additional Instructions: keep packing intact until follow up on saturday return sooner for worseing pain, fevers, chills or concerns Referrals: Caridad Patricia MD [ [facility] STAFF PHYSICIAN] - (f/u on Saturday) Medical Decision Making area anethesized with lidocaine 1% with epi with good effect. using 11 blade I&D of cyst with purulent drainage consistent with pilonidal cyst performed by Dr Lezama. culture obtained and sent to lab. track packed with 1/4 inch packing. no antibiotics, scout in setting of cdiff after being treated for cellulitis associated with last cyst. no cellulitis noted today. no fevers. will f/u outpatient with surgery. discussed with Dr Patricia HPI General Date/Time Provider Initiated Documentation: 08/26/20 17:52. Limitations to Documentation: no limitations. Information obtained by: patient. HPI Narrative: patient returns for recurrent pilonidal cyst, no fevers. Related Data Home Medications Medication Instructions Recorded Confirmed prenat.vits,jim,uhj-vpcp-vcbrt 1 tab PO DAILY 03/09/20 08/26/20 ondansetron HCl 8 mg tablet 8 mg PO DAILY #30 tab 08/12/20 08/26/20 Previous Rx's Medication Instructions Recorded ondansetron HCl 8 mg tablet 8 mg PO DAILY #30 tab 08/12/20 Allergies Allergy/AdvReac Type Severity Reaction Status Date / Time No Known Drug Allergies Allergy Unverified 08/26/20 17:55 General Stated Complaint: RashLesion BRITTANY: 3 Review of Systems Constitutional Constitutional: Denies fever(s) Integumentary/Breasts Skin/Breast: Reports lesions (recurrent left sided pilonidal cyst) [facility] Medical History (Updated 08/26/20 @ 18:51 by Pooja Torres, VARSHA) Anxiety Bacterial vaginosis Depression Interstitial cystitis Recurrent tonsillitis Surgical History Tonsillectomy age 18yr wisdom teeth age 19yr Family History Maternal Uncle Throat cancer Maternal Aunt Thyroid cancer Other FHx: throat cancer Social History Smoking/Tobacco Use Status: Never Smoking risk assessment performed?: Yes Alcohol Intake: former Drug use: Never Substance use type: does not use Do you feel safe at home: Yes Do you feel safe in your relationship?: Yes History History 1 Para 0 Hx # Term Pregnancies 0 Multiple births 0 Hx # Pregnancies 0 Ectopic pregnancies 0 AB induced 0 Hx Number of Living Children 0 AB spontaneous 0 Exam Const General: cooperative, healthy appearing, comfortable and no acute distress Nutritional Appearance: average body habitus (, consistent with gestational age) Resp Effort & Inspection: normal respiratory effort Cardio Rate: regular rate Rhythm: regular rhythm and other ( heart rate 140's) Skin Lesions: lesion noted (left sided area of fluctuance, tender to touch left of gluteal crease. ) Rashes: no rashes Neuro General: patient alert, patient awake and patient oriented x3 Cognition: normal cognition Course Vital Signs Vital signs: Vital Signs Temperature 36.8 C 08/26/20 17:47 Pulse 103 H 08/26/20 17:47 Respiratory Rate 14 08/26/20 17:47 Blood Pressure 99/72 L 08/26/20 17:47 Pulse Oximetry 97 08/26/20 17:47 Temperature 36.8 C 08/26/20 17:47 Temperature Source Skin 08/26/20 17:47 Pulse 103 H 08/26/20 17:47 Respiratory Rate 14 08/26/20 17:47 Respiratory Effort Non-Labored 08/26/20 18:01 Blood Pressure 99/72 L 08/26/20 17:47 Blood Pressure Position Sitting 08/26/20 17:47 Pulse Oximetry 97 08/26/20 17:47 Oxygen Delivery Method Room Air 08/26/20 17:47 Oxygen Flow Rate 0 08/26/20 17:47 Pain Level 6 08/26/20 17:47
--- NOTE | 2020-08-26 18:49 | NUR.NOTE ---
Nursing Note: [facility] to [facility] faxedLia consulted with Dr. Patricia. Ghislaine García
--- NOTE | 2020-08-26 19:24 | W.ED.PROC ---
Procedures Abscess I/D Site: Other (pilonidal) Local Anesthetic: Lidocaine 1% and With Epi Amount of anesthesia used (mL): 3 Technique: Incised with #11 Blade Amount of fluid expressed (mL): 10 Irrigation: Yes Packing used?: Plain Narrative Narrative Narrative: I was asked to participate in care by VARSHA Torres to assist with abscess incision and drainage. Ultrasound guidance was utilized to visualize hypoechoic fluid collection, area was prepped with Betadine, sterile precautions maintained. No complications. Patient was treated and disposition by VARSHA Torres with plan for outpatient follow-up with general surgery. I did speak with Dr. Patricia about incision and drainage and she plans to see the patient early next week.
== END 2020-08-26 19:00 | disposition home or self-care (01) ==
PROVIDERS: Emergency Provider Nurse Practitioner Acute Care; PCP Family Medicine
DX: L05.01 Pilonidal cyst with abscess (principal); Z3A.33 33 weeks gestation of pregnancy
CPT/HCPCS: 10081; 87077; 87070; 87186; 87205

== ENCOUNTER 2020-08-29 08:29 | Emergency (ER) | payer OTHER, SELFPAY ==
[2020-08-29 08:34] VITALS: BP 109/67; PULSE 100; RESP 18; TEMP 36.5; O2SAT 97
--- NOTE | 2020-08-29 09:05 | ED.GENADUL_ITS ---
Discharge Plan Disposition Patient Disposition: HOME Condition: Stable Discharge Details Clinical Impression: Pilonidal abscess, Cellulitis Primary Care Provider: Karma Hunt V ED Provider: Kodi Tracey Home Meds and New Rx's Prescriptions: New cephalexin [Keflex] 500 mg capsule 500 mg PO QID 10 Days Qty: 40 RF: 0 Continued prenat.vits,jim,[id number] Tablet 1 tab PO DAILY RF: 0 ondansetron HCl 8 mg tablet 8 mg PO DAILY Qty: 30 RF: 3 Discharge Instructions Instructions: Cellulitis (ED), Abscess (ED) Additional Instructions: Keflex as directed. Ryar-ojk-jyordeq Tylenol as directed. Warm soaks or compresses every 2 hours for 20 minutes. Change dressing as needed. Please watch for new or worsening symptoms and return to the ER for any concerns. I do recommend taking sqpm-szs-nuxozpt probiotics given we are placing you on antibiotics and your recent history of C. difficile. Please follow-up with surgery tomorrow morning as already scheduled at 7:00 unless they happen to have a cancellation and can see you today instead. Referrals: Caridad Patricia MD [ [facility] STAFF PHYSICIAN] - Discharge Data Discharge Date/Time-TO BE ENTERED AT DEPARTURE: 08/29/20 09:34 Medical Decision Making 25-year-old female, approximately 34 weeks , presents for reevaluation of a draining pilonidal cyst. She is scheduled to be seen by surgery tomorrow morning. She was not placed on antibiotics 3 days ago because of her recent C. difficile. Subsequently the area has become more painful, and today clinically there does appear to be mild surrounding cellulitis however the cyst is actively draining, there is no pointing abscess or fluctuance. There is no spreading er ythema, the cellulitis does appear very localized. I was able to review the region culture, it did grow out Staphylococcus, sensitivity to follow. The dressing was replaced. We discussed options, I feel as though initiating antibiotic therapy is perfectly reasonable. We will initiate therapy with Keflex. I do understand that she did have recent C. difficile however I do not see any other option except initiate antibiotic therapy. Do recommend probiotics and live culture yogurt. I see no clear indication for a deeper I&D at this time and with the patient following up with our surgical team tomorrow at 7 AM I believe continuing warm compresses, adding on Keflex, and close outpatient follow-up is perfectly reasonable. We did discuss watching for new or worsening symptoms such as fever, abdominal pain, vomiting, etc. and returning immediately to the ER. Patient has no additional questions or concerns and is comfortable with this plan. Medical Records Medical records reviewed: Yes I reviewed the patient's medical records. HPI General Mode of arrival: ambulatory . Date/Time Provider Initiated Documentation: 08/29/20 08:42 . Limitations to Documentation: no limitations . Information obtained by: patient . HPI Narrative: This is a 25-year-old female who is approximately 34 weeks presenting to the ER for evaluation. She was seen in the ER 3 days ago, had a pilonidal cyst drained, and is scheduled to see surgery tomorrow at 7 AM. She states that she has had the cyst multiple times in the past but they have never been infected or hurt this much. She states that the area is still draining, it is foul-smelling, and the pain is worsening. She has been taking txic-mtt-ihzawkb Tylenol for her discomfort. At the time of her ER visit they cultured the abscess but did not start her antibiotics because she recently had C. difficile. Patient denies any fever, abdominal pain, vaginal bleeding, discharge, nausea or vomiting. Denies any diarrhea or constipation. 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 BRITTANY: 3 Review of Systems Constitutional Constitutional: Denies fever(s) Gastrointestinal Gastrointestinal: Denies abdominal pain, Denies diarrhea, Denies nausea and Denies vomiting Genitourinary Genitourinary: Denies abnormal vaginal bleeding, Denies dysuria and Denies vaginal discharge Musculoskeletal Musculoskeletal: Denies back pain PFSH Medical History Anxiety Bacterial vaginosis Depression Interstitial cystitis Recurrent tonsillitis Surgical History Tonsillectomy age 18yr wisdom teeth age 19yr Family History Maternal Uncle Throat cancer Maternal Aunt Thyroid cancer Other FHx: throat cancer Social History Smoking/Tobacco Use Status: Never Smoking risk assessment performed?: Yes Alcohol Intake: former Drug use: Never Substance use type: does not use Do you feel safe at home: Yes Do you feel safe in your relationship?: Yes History History 1 Para 0 Hx # Term Pregnancies 0 Multiple births 0 Hx # Pregnancies 0 Ectopic pregnancies 0 AB induced 0 Hx Number of Living Children 0 AB spontaneous 0 Exam Const General: cooperative, healthy appearing, comfortable and no acute distress Orientation: alert and awake HENID Head: normal to inspection, normocephalic and atraumatic Eyes General: appearance normal, both eyes and all related structures Conjunctivae: conjunctivae normal Sclera: sclerae normal Neck Neck: normal visual inspection, full ROM, trachea midline and supple Resp Effort & Inspection: normal respiratory effort and able to speak in complete sentences Auscultation: clear to auscultation bilaterally Cardio Rate: regular rate Rhythm: regular rhythm GI Palpation: mass (Consistent with approximate 34-week ) and nontender Back/Spine/Pelvis Back: no CVA tenderness and No back tenderness Back/spine/pelvis image: 1. Diffuse mild discomfort, erythema, warmth, induration. Centrally there is a draining wound that is packed with packing. There is no additional fluctuance or pointing abscess. The drainage is very foul-smelling Skin General skin exam: no rashes or lesions noted Neuro General: patient alert, patient awake, moves all extremities and no focal motor deficits Sensory Exam: no sensory deficits noted Psych Appearance: grossly normal Mental Status: mental status grossly normal Course Vital Signs Vital signs: Vital Signs Temperature 36.5 C 08/29/20 08:34 Pulse 100 H 08/29/20 08:34 Respiratory Rate 18 08/29/20 08:34 Blood Pressure 109/67 08/29/20 08:34 Pulse Oximetry 97 08/29/20 08:34 Temperature 36.5 C 08/29/20 08:34 Temperature Source Temporal Artery Scan 08/29/20 08:34 Pulse 100 H 08/29/20 08:34 Respiratory Rate 18 08/29/20 08:34 Respiratory Effort Non-Labored 08/29/20 08:37 Blood Pressure 109/67 08/29/20 08:34 Blood Pressure Position Sitting 08/29/20 08:34 Pulse Oximetry 97 08/29/20 08:34 Oxygen Delivery Method Room Air 08/29/20 08:34 Oxygen Flow Rate 0 08/29/20 08:34 Pain Level 9 08/29/20 08:37
== END 2020-08-29 09:34 | disposition home or self-care (01) ==
PROVIDERS: Emergency Provider Physician Assistant; PCP Family Medicine
DX: L03.317 Cellulitis of buttock (principal); B95.61 Methicillin susceptible Staphylococcus aureus infection as the cause of diseases classified elsewhere; Z48.01 Encounter for change or removal of surgical wound dressing; Z3A.34 34 weeks gestation of pregnancy
CPT/HCPCS: 99283

== ENCOUNTER 2020-09-05 13:50 | Outpatient (CLI) | payer OTHER, SELFPAY ==
--- NOTE | 2020-09-05 14:50 | W.OBNST ---
Date of service: 09/05/20 Time of Service: 14:51 NST Evaluation Reason for NST Reasons for Nonstress Test: DECREASED MOVEMENT Gestational Age Gestational Age in Weeks and Days: 34 Weeks and 5Days Test and Monitor Explained Test/Monitor Explained: Test Explained, Monitor Explained and Patient Verbalized Understanding NST Information Date on Monitor: 09/05/20 Time on Monitor: 13:35 Date off Monitor: 09/05/20 Time off Monitor: 14:10 Total Time on Monitor: 35 NST Interventions: None Contraction Frequency: irreg NST Evaluation Patient States Movement: Present FHR Baseline: 125 Variability: Moderate 6-25 bpm Accelerations: 15x15 Decelerations: None NST Results: Reactive Note NST Note Note: Fetus was active. reactive NST NST Reviewed and Verified by: Radha Ge
== END 2020-09-05 14:15 | disposition home or self-care (01) ==
LOC: BCD 13:53 → OBS 14:13
PROVIDERS: PCP Family Medicine; Visit Provider Advanced Practice Midwife
DX: O36.8130 Decreased fetal movements, third trimester, not applicable or unspecified (principal); Z3A.34 34 weeks gestation of pregnancy
CPT/HCPCS: 59025

== ENCOUNTER 2020-09-13 20:46 | Outpatient (REF) | payer OTHER, SELFPAY ==
[2020-09-13 18:21] LABS: *AMPHETAMINES SCREEN URINE Negative (Negative); *BARBITURATES SCREEN URINE Negative (Negative); *BENZODIAZEPINES SCREEN URINE Negative (Negative); Cannabinoids THC Negative (Negative); Cocaine Screen,Urine Negative (Negative); METHADONE URINE SCREEN Negative (Negative); OPIATES URINE SCREEN Negative (Negative)
[2020-09-13 18:28] LABS: Tricyclic Antidepressants Negative (Negative)
[2020-09-17 11:26] LABS: Buprenorphine Negative
== END 2020-09-13 21:06 ==
LOC: LBN 20:46
PROVIDERS: PCP Family Medicine; Visit Provider Advanced Practice Midwife
DX: Z34.93 Encounter for supervision of normal pregnancy, unspecified, third trimester (principal)
CPT/HCPCS: 80307; 87081

== ENCOUNTER 2020-09-22 10:37 | Outpatient (CLI) | payer OTHER, SELFPAY ==
[2020-09-22 11:04] VITALS: BP 113/68; PULSE 90; TEMP 36.6
[2020-09-22 11:06] VITALS: BP 113/68; PULSE 90
--- NOTE | 2020-09-22 12:09 | W.OBNST ---
Date of service: 09/22/20 Time of Service: 12:09 NST Evaluation Reason for NST Reasons for Nonstress Test: OTHER, SEE COMMENT Reason for NST Other: Question rupture of membranes Gestational Age Gestational Age in Weeks and Days: 37 Weeks and 1Days Test and Monitor Explained Test/Monitor Explained: Test Explained, Monitor Explained and Patient Verbalized Understanding Vital Signs Blood Pressure: 113/68 Pulse: 90 Temperature: 97.9 F NST Information Date on Monitor: 09/22/20 Time on Monitor: 11:06 Date off Monitor: 09/22/20 Time off Monitor: 11:37 Total Time on Monitor: 31 NST Interventions: PO Hydration NST Evaluation Patient States Movement: Present FHR Baseline: 140 Variability: Moderate 6-25 bpm Accelerations: 10x10 Decelerations: None NST Results: Reactive Note NST Note Note: SSE performed, neg pooling, neg nitrizine, neg ferns. Membranes intact. SVE 1/60% anterior, vtx -2 NST Reviewed and Verified by: Agatha Gongora
[2020-09-22 12:10] VITALS: BP 113/68; PULSE 90; TEMP 36.6
== END 2020-09-22 11:40 | disposition home or self-care (01) ==
LOC: BCD 10:41 → OBS 10:58
PROVIDERS: PCP Family Medicine; Visit Provider Advanced Practice Midwife
DX: O47.1 False labor at or after 37 completed weeks of gestation (principal); Z3A.37 37 weeks gestation of pregnancy
CPT/HCPCS: 59025

== ENCOUNTER 2020-09-26 01:44 | Outpatient (CLI) | payer OTHER, SELFPAY ==
--- NOTE | 2020-09-26 08:15 | DI.US_ITS ---
EXAM: US OB RANDY WEIGHT CLINICAL HISTORY: S<D at 37 wks, size of fetus inconsistent with dates. TECHNIQUE: Transabdominal obstetrical ultrasound was performed. COMPARISON: US US OB F/U FACIAL/LVOT/RVOT from 05/20/2020 FINDINGS: There is a single viable intrauterine gestation with cardiac activity identified-141 bpm The fetus is presently in cephalic position . Amniotic fluid: There is a normal amount of amniotic fluid with an RANDY of 10.8cm. Placental location: The placenta is anterior grade 2,with no evidence of placenta previa. Dating parameters place this at approximately 35 weeks and 3 days gestational age, implying BAKARI of October 28, 2020. BPD measures 36 weeks and 1 day HC measures 35 weeks and 0 days AC measures 35 weeks and 5 days FL measures 35 weeks and 0 days Estimated weight is 2689 gm-5 pounds 15 ounces Fetus is at the 11th percentile on the Hadlock scale. Umbilical artery Doppler obtained and exhibits S/D ratio of 2.72 IMPRESSION:: Viable 3rd trimester gestation, present cephalic position. Fetus is at the 11th percen tile on the Hadlock scale. Low normal amount of amniotic fluid. Anterior placenta, grade 2. Umbilical artery systolic/diastolic ratio= 2.72 DATA REPOSITORY:
== END 2020-09-26 02:04 ==
PROVIDERS: PCP Family Medicine; Visit Provider Advanced Practice Midwife
DX: O26.843 Uterine size-date discrepancy, third trimester (principal)
CPT/HCPCS: 76816

== ENCOUNTER 2020-10-02 05:05 | Inpatient (IN) | payer OTHER, SELFPAY ==
[2020-10-02] VITALS (16 sets, daily range): BP systolic 104–127; BP diastolic 58–74; PULSE 71–101; RESP 18–20; TEMP 36.5–37.3; O2SAT 96–99
[2020-10-02 06:49] LABS: HCT 38.4 % (36.0-46.0); MCH 28.4 pg (27.0-33.0); MCHC 33.9 % (32.0-36.0); MPV 11.9 fL (8.0-11.0); Platelet Count 247 10^3/uL (130-400); RBC 4.57 10^6/uL (3.93-5.22); RDW 12.8 % (11.7-14.6); RDW-SD 38.6 fL; WBC 13.21 10^3/uL (4.4-10.8)
[2020-10-02] MEDS: Oxytocin 10 UNITS/ML VIAL IM (10:25)
[2020-10-02] MEDS: Lidocaine 1% Multi-Dose 20 ML VIAL IJ (10:30)
--- NOTE | 2020-10-02 10:57 | HPE_ITS ---
Date of service: 10/02/20 Time of Service: 10:57 Assessment and Plan Assessment and plan (1) Spontaneous onset of labor: Status: Acute Assessment and plan: Admit to Center. Comfort measures. Covid- 19 test. Anticipate . OB-HPI Labor/Delivery History of Present Illness Reason for Visit: RULE OUT LABOR Chief Complaint: Uterine Contractions. BAKARI Calculator Estimated Delivery Date Method Current WG Current Estimate 10/12/20 LMP (Certain) 38w 4d Other Estimates 10/14/20 Ultrasound #1 38w 2d Comments: Strong regular contractions at home. Hilda was instructed to come in to the Center History of Present Expected Delivery Route/Plan - CNM FOB/boyfriend - Manny King (his first child) BG Rubella Non-Immune, MMR GBS negative Specific Issues/Plan 1. Interstitial Cystitis-age 22, treated with amitriptyline. weaning off at 11 weeks 2. Anxiety/Depression - Fluoxetine 20 mg daily, decreased to 10 mg /day and plans to wean off 3. Vaginal discharge, vaginal panel taken. Treated for yeast 12/2019 3a. BV - metronidazole 500 mg e-scribed 03/28. Light bleeding at 11+5 weeks 3b. 05/12/20: E-rx for same along w/ cream for fob.al 3c. 06/09/20: C/o recurrence thus another VPS obtained, 3d. VPS done 07/07: BV+, Rx metrogel vaginal x5hs 3e. Hilda reported recurrence of symptoms. Metronidazole 500 BID x 7 with monthly refills recommended- started 07/31 3f. 08/03 Yeast and BV confirmed by Pathogen screen- continue metronidazole monthly and monistat 7 day recommended. 4. Rh neg, RhoGam @ 28 wks, done 07/20/20 5. Rubella Non-Immune, will give MMR , pt consents 6. SMA/CF carrier screen negative, [place] low prob x3, female 6a. 05/12/20: AFP low risk al 7. Pilonidal cyst drained in ED 05/16/20 & again 06/28, 7a. recurrent, I&D in ED again 08/26 & Rx'ed Keflex, surgeon, Dr. Richards recommends definitive surgery at 6 weeks 7b. 08/29 - ED visit - augmentin prescribed by Dr. Richards. 8. UTI 07/07 E-coli+, MacroBid 100 mg PO BID 9. size less dates - sono shows 11%ile, RANDY 10.8 - NST scheduled 10/03/20 [facility] Medical History (Updated 10/02/20 @ 10:58 by Radha Ge CNM) Anxiety Bacterial vaginosis Depression Interstitial cystitis Pilonidal abscess Recurrent tonsillitis Surgical History Tonsillectomy age 18yr wisdom teeth age 19yr Family History Maternal Uncle Throat cancer Maternal Aunt Thyroid cancer Other FHx: throat cancer Social History Smoking/Tobacco Use Status: Never Smoking risk assessment performed?: Yes Alcohol Intake: former Drug use: Never Substance use type: does not use Do you feel safe at home: Yes Do you feel safe in your relationship?: Yes History History 1 Para 0 Hx # Term Pregnancies 0 Multiple births 0 Hx # Pregnancies 0 Ectopic pregnancies 0 AB induced 0 Hx Number of Living Children 0 AB spontaneous 0 Meds Home Medications and Allergies Home Medications Medication Instructions Recorded Confirmed Type prenat.vits,jim,oqd-tkuo-dvxsi 1 tab PO DAILY 03/09/20 10/02/20 History ondansetron HCl 8 mg tablet 8 mg PO DAILY #30 tab 08/12/20 10/02/20 Rx L. acidophilus,casei,rhamnosus 50 1 cap PO DAILY cap 09/13/20 10/02/20 History billion cell capsule,delayed release Allergies Allergy/AdvReac Type Severity Reaction Status Date / Time No Known Drug Allergies Allergy Unverified 09/26/20 12:38 Exam Physical Exam Vital signs: Temp Pulse Resp BP Pulse Ox 97.7 F 96 H 20 111/60 99 10/02/20 08:45 10/02/20 10:55 10/02/20 06:00 10/02/20 10:55 10/02/20 09:02 Vital Signs Reviewed: Yes Constitutional Constitutional: mild distress Detailed Labor and Delivery Exam Dilation: 5 Effacement (%): 80 station: -1 Cervix position: anterior Consistency: soft Iyv Score: Cervical Points Exam 0 1 2 3 Dilation Closed 1-2cm 3-4 cm 5-6cm Effacement 0-30% 40-50% 60-70% 80% Consistency Firm Medium Soft Station -3 -2 -1,0 +1,+2 Position Posterior Mid Anterior Contraction Frequency(min): Every 3 min Contraction Intensity: Mild/Moderate Fetus A Heart Rate Baseline: 130 Monitor Accelerations: 15 X 15 Monitor Decelerations: None Variability: Moderate (6-25 BPM) Presentation: Cephalic Date of Membrane Rupture: 10/02/20 Time of Membrane Rupture: 06:28 Respiratory Exam Respiratory Exam: Normal Cardiovascular Exam Cardiovascular Exam: Normal Abdominal Exam Abdominal Exam: Normal Exam Exam: Normal Extremities Exam Extremities Exam: Normal Back/Spine/Pelvis Exam Pelvis Adequate: Yes Skin Exam Skin Exam: Normal Results Results Group Beta Strep: Negative Blood Type: A- Rubella Status: Nonimmune Varicella Immunity: Immune Abnormal Lab Findings: Abnormal Labs 10/02/20 06:25 WBC 13.21 H MPV 11.9 H Risk Assessment Risk for Shoulder Dystocia Historical/Initial OB: NEGATIVE FOR: Pelvic Abnormality, Pre- BMI>30, P revious Shoulder Dystocia or Previous Macrosomia 40 Weeks: NEGATIVE FOR: EFW> 4500 gms, Maternal Weight Gain >40lb or Post Dates Increased Risk?: No Risk for Pre-Eclampsia Daily Dose ASA Indicated: No Yes, if one or more: NEGATIVE FOR: Hx Pre-E/Gest HTN, Chronic HTN, Multiple Gestation, Pre-gestational DM, Renal Disease, Systemic Lupus or APA Syndrome Yes, if 2 or more: POSITIVE FOR: Nulliparity; NEGATIVE FOR: Age>= 35 yrs, >10yr btwn pregnancies, BMI>30, ethinicty, Mother/Sister w/ Pre-E or Previous IUGR Risk for Post- Hemorrhage Initial: NEGATIVE FOR: Multiple Gestation, Previous PPH, Known Clotting Deficiency, Grand Multiparity or Anticoagulation At Risk?: No Risks Reviewed Risks Reviewed Upon Admission: Yes
--- NOTE | 2020-10-02 11:01 | W.OBDELIVERY ---
Date of service: 10/02/20 Time of Service: 11:01 OB Labor/ Delivery Information Baby A Delivery Delivery Method: Spontaneaous Presentation: Cephalic Vertex Position: Right Occipital Anterior Amniotic Fluid: Meconium (light) Estimated Blood Loss: 300 Delivery Outcome: Liveborn Providers Nurse Plycor Operator: Radha Ge Nurse: Tish Cannon Nurse: Marlyn Corcoran Labor/Delivery Information Number of Babies in Womb: 1 Steroids Given: None Reason Steroids Not Administered: N/A Group Beta Strep: Negative Rubella Status: Nonimmune Blood Type: A- Varicella Immunity: Immune Maternal Complications: None Shoulder Dystocia: No Note: FHTs 130s during first stage of labor. FHTs 120-130 in second stage. Progressed to full dilation and moved to the tub and began pushing. Spontaneous delivery of female delivered in PASTOR position. A double loop of nuchal cord was noted and anterior hand presenting with the face. Baby was placed on mother's abdomen and dried and stimulated. Spontaneous cry. Cord was clamped and cut by the bay's father. Hilda was moved to the bed for delivery of the placenta . Pitocin 10 units was administered after delivery of the placenta. The perineum was inspected and a right superficial labial laceration was repaired under local anesthetic with 4-0 vicryl suture. A left periurethral and small perineal abrasion were not repaired and were not bleeding. The placenta delivered spontaneously and appears to by intact with a three vessel cord though torn due to marginal insertion and cord partially seperating with delivery. The baby did attempt to breastfeed but did not latch on. After delivery, Mother and baby Sherrie Cifuentes and father of the baby were stable and bonding well in the delivery room. Stages of Labor Onset of Labor Date: 10/02/20 Onset of Labor Time: 01:30 ROM Baby A: 10/02/20 ROM Baby A: 06:28 Delivery Date-Baby A: 10/02/20 Infant Delivery Time-Baby A: 10:04 Placenta Delivery Date-Baby A: 10/02/20 Placenta Delivery Time-Baby A: 10:25 Labor-Stage 3 Duration: 21 minutes Total Length of Labor-Baby A: 8 hours and 34 minutes Placenta Status: Delivered Placenta Status: Delivered (cord seperated partially from placents, marginal insertion. Placenta edge grasped at introitus with Shraddha clamp and delivered by grasping placenta) Baby A Infant Gender: Female Gestational Status: Early Term (37-38.6 wks) Gestational Age in Weeks/Days: 38 Weeks and 4 Days Score-1 Minute Interval(Baby A) Heart Rate-1 minute: 100 BPM or Greater Respiratory Effort- 1 minute: Slow Respiration/Weak Cry Muscle Tone-1 minute: Active Movement Reflex Response-1 minute: Prompt Response Color-1 minute: Pallor or Cyanosis Total Score-1 minute: 7 Score-5 Minute Interval(Baby A) Heart Rate- 5 minute: 100 BPM or Greater Respiratory Effort-5 minute: Spontaneous/Strong Cry Muscle Tone-5 minute: Active Movement Reflex Response-5 minute: Prompt Response Color-5 minute: Bluish Hands or Feet Total Score- 5 minute: 9 Interventions Repair of Laceration Type: Periurethral and Other (right labial) , Laceration Extension: N/A . Sponge Count Correct: Vaginal Sweep Peformed , Sharp Count Correct: Yes . Laceration Repair Note: The perineum was inspected and a right superficial labial laceration was repaired under local anesthetic with 4-0 vicryl suture. A left periurethral and small perineal abrasion were not repaired and were not bleeding.
[2020-10-02] MEDS: Ibuprofen 600 MG TAB PO (11:08)
[2020-10-02] MEDS: Acetaminophen 325 MG TAB 650 MG PO ×2 (11:09→20:29)
[2020-10-02] MEDS: Hamamelis Leaf/Glycerin 100 EACH BOX PR (11:09)
[2020-10-02] MEDS: miSOPROStol 200 MCG TAB 400 MCG SL (11:20)
[2020-10-02 23:02] LABS: COVID-19 RT-PCR UVMMC Result Negative (Negative)
[2020-10-03 00:24] VITALS: BP 122/74; PULSE 86; RESP 18; TEMP 36.6; O2SAT 98
[2020-10-03 07:10] LABS: HCT 34.5 % (36.0-46.0); HGB 11.5 g/dL (11.2-15.7); MCH 28.5 pg (27.0-33.0); MCHC 33.3 % (32.0-36.0); MCV 85.4 fL (80-95); MPV 11.8 fL (8.0-11.0); Platelet Count 215 10^3/uL (130-400); RBC 4.04 10^6/uL (3.93-5.22); RDW 12.8 % (11.7-14.6); RDW-SD 39.8 fL; WBC 12.05 10^3/uL (4.4-10.8)
[2020-10-03 08:00] VITALS: BP 113/72; PULSE 75; RESP 14; TEMP 36.9
[2020-10-03] MEDS: Acetaminophen 325 MG TAB 650 MG PO ×2 (08:06→21:28)
[2020-10-03] MEDS: Ibuprofen 600 MG TAB PO (08:07)
--- NOTE | 2020-10-03 16:20 | W.PM.OBPNV1 ---
Date of service: 10/03/20 Time of Service: 16:20 Assessment and Plan Assessment and plan (1) Term delivered: Status: Acute Assessment and plan: A: PPD#1, nml recovery, satisfied with experience P: Undecided about BCM, considering POP's LC Consult for latch issues RhoGam given yesterday Plan for discharge tomorrow Subjective Subjective Patient comments: Pain well controlled, Tolerating diet and Flatus present baby status: Doing well, Nursing well (some struggles with latch), Rooming in and Strong Bonding Observed feeding status: Exclusively breast feeding Exam Physical Exam Vital signs: Temp Pulse Resp BP Pulse Ox 98.4 F 75 14 113/72 98 10/03/20 08:00 10/03/20 08:00 10/03/20 08:00 10/03/20 08:00 10/03/20 00:24 Vital Signs Reviewed: Yes Constitutional Constitutional: no acute distress Breast Exam Bilateral: Breast Exam: Normal and Soft Nipple Exam: Normal Respiratory Exam Respiratory Exam: Normal Cardiovascular Exam Cardiovascular Exam: Normal Abdominal Exam Abdomen: Other (soft, nontender) Fundal Exam Fundus: Below Umbilicus and Firm Rectal Exam Rectal Exam: Not Done Exam Perineum: Repair Intact Extremities Exam Extremity Exam: Normal Back/Spine/Pelvis Exam Back Exam: Normal Skin Exam Skin Exam: Normal Neurological Exam Neurological Exam: Normal Psychiatric Exam Psychiatric Exam: Normal Results Hemoglobin/Hematocrit: Hgb 11.5 g/dL (11.2-15.7) 10/03/20 06:45 Hct 34.5 % (36.0-46.0) L 10/03/20 06:45 Abnormal Lab Findings: Abnormal Labs 10/02/20 10/03/20 06:25 06:45 WBC 13.21 H 12.05 H Hct 34.5 L MPV 11.9 H 11.8 H
[2020-10-03 16:30] VITALS: BP 115/76; PULSE 85; RESP 20; TEMP 36.8
[2020-10-04 08:00] VITALS: BP 114/78; PULSE 83; RESP 14; TEMP 36.8
--- NOTE | 2020-10-04 11:35 | W.PM.OBDISCH ---
Date of service: 10/04/20 Time of Service: 11:36 DS: Diagnosis Discharge Diagnosis (1) Term delivered: Status: Acute Asessment and Plan: Caring for baby independently. Pain is managed well with oral analgesics. Voiding without difficulty. with a nipple shield due to poor latch. Cracking of nipples bilaterally. right more than left. A - stable mother and baby , Post day 2, difficulty, sore nipples P - Discharge to home . Routine post instructions. Discussed contraception. Undecided at this time. All purpose nipple cream recommended and this was e-scribed at [facility]. [facility] Discharge Plan Discharge Details Reason For Visit: RULE OUT LABOR Admit Date/Time: 10/02/20 06:02 Admit Provider: Radha Ge Attending Provider: Radha Ge Primary Care Provider: Karma Hunt V Home Meds and New Rx's Prescriptions: No Action prenat.vits,jim,[id number]-gujrl Tablet 1 tab PO DAILY RF: 0 Bio-K plus 50 billion cell capsule,delayed release(DR/EC) 1 cap PO DAILY RF: 0 ondansetron HCl 8 mg tablet 8 mg PO DAILY Qty: 30 RF: 3 Discharge Instructions Activity:: Activity as Tolerated Activity:: Activity as Tolerated Equipment/Supplies:: No Equipment Needed Diet:: As Tolerated OB:DS Summary Summary Vaginal Delivery Method: Spontaneaous Episiotomy Description: None Laceration Description: Periurethral and Other (right labial) Laceration Extension: N/A Contraception Discussed Contraception Discussed: Yes, [place] Gender-Baby A: Female weight: 6 lb 5.413 oz Status at Discharge Functional status at discharge: independent ambulation Overall status at discharge: patient is back to baseline Mental Status: mental status grossly normal Speech and Movement: speech and movement normal Mood: congruent mood Affect: normal affect Exam Physical Exam Vital signs: Temp Pulse Resp BP Pulse Ox 98.2 F 83 14 114/78 98 10/04/20 08:00 10/04/20 08:00 10/04/20 08:00 10/04/20 08:00 10/03/20 00:24 Vital Signs Reviewed: Yes Constitutional Constitutional: no acute distress Breast Exam nipple cracking bilaterally: Nipple Exam: Other (cracking bilaterally) Respiratory Exam Respiratory Exam: Normal Cardiovascular Exam Cardiovascular Exam: Normal Fundal Exam Fundus: Below Umbilicus and Firm Exam Perineum: Repair Intact Extremities Exam Extremity Exam: Normal Skin Exam Skin Exam: Normal Psychiatric Exam Psychiatric Exam: Normal [facility] Medical History (Updated 10/03/20 @ 16:23 by Agatha Gongora) Anxiety Bacterial vaginosis Depression Interstitial cystitis Pilonidal abscess Recurrent tonsillitis Surgical History Tonsillectomy age 18yr wisdom teeth age 19yr Family History Maternal Uncle Throat cancer Maternal Aunt Thyroid cancer Other FHx: throat cancer Social History Smoking/Tobacco Use Status: Never Smoking risk assessment performed?: Yes Alcohol Intake: former Drug use: Never Substance use type: does not use Do you feel safe at home: Yes Do you feel safe in your relationship?: Yes History History 1 Para 0 Hx # Term Pregnancies 0 Multiple births 0 Hx # Pregnancies 0 Ectopic pregnancies 0 AB induced 0 Hx Number of Living Children 0 AB spontaneous 0 DS: Data Vitals/I&O Vitals and I&O: Vital Signs Temperature 98.2 F 10/04/20 08:00 Pulse 83 10/04/20 08:00 Pulse Rhythm Regular 10/04/20 08:00 Respiratory Rate 14 10/04/20 08:00 Respiratory Depth Normal 10/02/20 20:00 Blood Pressure 114/78 10/04/20 08:00 Blood Pressure Mean 90 10/04/20 08:00 Pulse Oximetry 98 10/03/20 00:24 Oxygen Delivery Method Room Air 10/02/20 06:00 Oxygen Flow Rate 0 10/02/20 06:00 Pain Level 0 10/04/20 08:00 Data Completed and Pending Labs on day of discharge: Labs from last 24 hours 10/02/20 06:25 Patient ABO/Rh A Negative Antibody Screen Negative Unit Expiration Date 02/12/22 Product Lot # [id number]
[2020-10-04] MEDS: Acetaminophen 325 MG TAB 650 MG PO (13:21)
[2020-10-04] MEDS: Ibuprofen 600 MG TAB PO (13:22)
== END 2020-10-04 14:00 | disposition home or self-care (01) | DRG 807 ==
PROVIDERS: Admitting Provider Advanced Practice Midwife; PCP Family Medicine; Visit Provider Advanced Practice Midwife
DX: O36.0930 Maternal care for other rhesus isoimmunization, third trimester, not applicable or unspecified (principal); Z37.0 Single live birth; O70.0 First degree perineal laceration during delivery; O99.344 Other mental disorders complicating childbirth; F41.8 Other specified anxiety disorders; O36.5930 Maternal care for other known or suspected poor fetal growth, third trimester, not applicable or unspecified; O99.72 Diseases of the skin and subcutaneous tissue complicating childbirth; Z3A.38 38 weeks gestation of pregnancy; Z11.59 Encounter for screening for other viral diseases; L05.91 Pilonidal cyst without abscess
CPT/HCPCS: 36415; 85027; 85461; 86850; 86900; 86901; 90384; U0003; J2590; J2790; J3490

== ENCOUNTER 2020-10-19 23:32 | Observation (INO) | payer OTHER, SELFPAY ==
--- NOTE | 2020-10-19 00:29 | DI.CT_ITS ---
EXAM: CT ABDOMEN PELVIS W CLINICAL HISTORY: mid and upper abdominal pain 2 weeks post TECHNIQUE: Imaging Protocol: Axial computed tomography images with coronal and sagittal reformatted images were created and reviewed CONTRAST MATERIAL: Intravenous: Omnipaque 350 Contrast volume:100 mL Oral: No COMPARISON: CT ABD PELVIS WITH CONTRAST from 01/15/2016 FINDINGS: ABDOMEN: Lung Bases: Normal where visualized. Liver: Normal density. No measurable mass. Portal, Superior Mesenteric, and Splenic Veins: Unremarkable. Gallbladder and Biliary Tract: No radiodense calculus or dilation. Moderate distension. 3.5 cm in tr ansverse diameter. Pancreas: Normal density, no abnormal calcifications or inflammatory process. Spleen: Normal. Adrenals: No masses seen. Kidneys: Normal size, contour and axis. No radiodense stones or obstructive uropathy. No masses seen. Abdominal Aorta: Abdominal portion non-dilated. Bowel: No obstruction or bowel wall thickening. The appendix is unchanged in appearance compared to 2 016. The proximal appendix measures 8 mm in transverse diameter. There does appear to be a 2 mm elena endicoliths at its ostium. The distal appendix is normal caliber measuring less than 4 mm in diamete r. No periappendiceal inflammatory changes are seen. Peritoneal Cavity: No ascites, collection or mesenteric inflammatory response. No free air. Lymph Nodes: There are mildly enlarged lymph nodes seen in the right lower quadrant. Bones: Within normal limits for the patient's age. Soft Tissues: Unremarkable. PELVIS: Bladder: Incompletely distended but no gross abnormality. Reproductive Organs: Unremarkable as visualized. Lymph Nodes: Within normal limits. Bones: Within normal limits for the patient's age. IMPRESSION: 1. Moderate gallbladder distention. No cholelithiasis or biliary ductal dilatation. 2. Mildly enlarged lymph nodes in the right abdomen. These may reflect reactive lymph nodes or mesen teric adenitis please correlate clinically. 3. Stable appearance of the appendix with a 2 mm appendicoliths. No periappendiceal inflammatory walter nges are seen. Given its similarity to the prior examination, early or mild acute appendicitis, thou gh not excluded, is considered less likely. Please correlate clinically. RADIATION DOSE DELIVERED: 976.21mGy.cm Total DLP DATA REPOSITORY: All CT scans at this facility are submitted to the National Radiology Data Registry (NRDR) Dose Index Registry (DIR) with the [employer] (ACR). RADIATION OPTIMIZATION: All CT scans at this facility use at least one of these dose optimization te chniques: automated exposure control; mA and/or kV adjustment per patient size (includes targeted exa ms where dose is matched to clinical indication); or iterative reconstruction.
[2020-10-19 23:35] VITALS: BP 107/61; PULSE 96; RESP 18; TEMP 36.2; O2SAT 99
--- NOTE | 2020-10-19 23:52 | W.ED.GENAD ---
Discharge Plan Disposition Patient Disposition: [facility] INPAT[facility] Condition: Stable Discharge Details Chief Complaint: Abd Prob Clinical Impression: Abdominal pain Primary Care Provider: Karma Hunt V ED Provider: Sukumar Diego Home Meds and New Rx's Prescriptions: No Action prenat.vits,jim,nmx-vvpv-litiv Tablet 1 tab PO DAILY RF: 0 Bio-K plus 50 billion cell capsule,delayed release(DR/EC) 1 cap PO DAILY RF: 0 Medical Decision Making 25 yo female who is 2 weeks post s/p vaginal delivery without reported complications comes in after she woke up with acute upper abdominal pain and states passed a blood clot from the vagina, no bleeding since. She has nausea but no vomit and states felt well prior to going to bed. She has tenderness throughout the upper abdomen, no lower abdominal tenderness, denies chest pain or dyspnea. Given her degrees of pain and location concern for possible entities such as pancreatitis, cholecystitis, and possible pneumoperitoneum, will obtain lab work and ct and reassess. Patient's labs show mild hypokalemia otherwise unremarkable and CT shows gallbladder distention without other abnormal findings, mildly enlarged lymphnodes in abdominal mesentery, and fluid filled appendix but appeared similar in 2016 per vrad. She has no right lower abdominal pain so doubt appendicitis at this time. Speculum exam showed mild amount of blood in vaginal vault without source of active bleeding. Despite toradol and fentanyl still has significant pain with palpation to the epigastric and ruq and given degree of pain doesn't feel comfortable going home. Discussed with Obgyn Dr. Duenas who accepts for observation and reevaluation in the morning. Differential Diagnosis Differential Diagnosis: cholecystitis, pancreatitis, pneumoperitoneum, hepatitis Imaging Data Radiologic Study: Attestation: I personally reviewed and interpreted this imaging study as follows: Imaging: CT Scan Radiologist's impression: IMPRESSION: 1. Moderate gallbladder distention, nonspecific. No calcified gallstones or biliary dilatation. 2. Clustered mildly enlarged lymph nodes in the right abdominal mesentery. Although nonspecific, reactive nodes or mesenteric adenitis could have this appearance. 3. Appendix fluid-filled and dilated to 8 mm transverse dimension from its midportion to the appendiceal ostium with a 2 mm calcified appendicolith. Upstream appendix normal in caliber from its midportion to the appendiceal tip measuring approximately 3-4 mm transverse dimension. No periappendiceal inflammatory change. Although early or mild acute appendicitis could have this appearance, the appendix had a similar appearance on the prior exam from January 15, 2016. Clinical correlation is recommended as the imaging appearance is equivocal. Lab Data Lab results reviewed: Yes I reviewed the patient's lab results. HPI General Mode of arrival: ambulatory. Date/Time Provider Initiated Documentation: 10/19/20 23:33. Limitations to Documentation: no limitations. Information obtained by: patient. History of Present Illness 25 year old F presents to the emergency department with the chief complaint of abdominal pain, described as moderate and severe, with intensity rated at 8. Quality is described as stabbing, and is localized to the abdomen. and it has been constant. No relieving factors improve symptom(s), No exacerbating factors reported . Patient notes other (nausea). Patient did receive the following treatments prior to arrival, none Related Data Home Medications Medication Instructions Recorded Confirmed prenat.vits,jim,zyx-xztx-sigeg 1 tab PO DAILY 03/09/20 10/02/20 L. acidophilus,casei,rhamnosus 50 1 cap PO DAILY cap 09/13/20 10/02/20 billion cell capsule,delayed release Allergies Allergy/AdvReac Type Severity Reaction Status Date / Time No Known Drug Allergies Allergy Unverified 10/17/20 10:58 General Stated Complaint: Abd Prob BRITTANY: 3 Review of Systems All systems reviewed & are unremarkable except as noted in HPI and below Constitutional Constitutional: Denies chills, Denies fever(s) and Denies weakness Cardiovascular Cardiovascular: Denies chest pain and Denies dyspnea Respiratory Respiratory: Denies cough and Denies dyspnea Gastrointestinal Gastrointestinal: Denies vomiting Musculoskeletal Musculoskeletal: Denies joint swelling Neurologic Neurologic: Denies weakness [facility] Medical History (Updated 10/20/20 @ 01:26 by Sukumar Diego MD) Anxiety Bacterial vaginosis Depression Dysuria during in third trimester Interstitial cystitis Pilonidal abscess 05/16/2020 I&D and wound packed by general surgery. Pilonidal abscess Pilonidal cyst Recurrent tonsillitis Rh negative status during Size of fetus inconsistent with dates in third trimester Spontaneous onset of labor Vaginal discharge Vaginal discharge during Surgical History Tonsillectomy age 18yr wisdom teeth age 19yr Family History Maternal Uncle Throat cancer Maternal Aunt Thyroid cancer Other FHx: throat cancer Social History Smoking/Tobacco Use Status: Never Smoking risk assessment performed?: Yes Alcohol Intake: former Drug use: Never Substance use type: does not use Do you feel safe at home: Yes Do you feel safe in your relationship?: Yes History History 1 Para 1 Hx # Term Pregnancies 1 Multiple births 0 Hx # Pregnancies 0 Ectopic pregnancies 0 AB induced 0 Hx Number of Living Children 1 AB spontaneous 0 Past Pregnancies Del. Date GA/Weeks # Outcome Route Wgt Sex Labor Lgth Anesthesia Location Prov Complic 10/02/20 38 No Successful vaginal Female 8 hrs 34 min NATACHA Blair Delivery Date: 10/02/20 Sherrie King; Alvina Springer Exam Const General: no acute distress Orientation: alert HENMT Head: normal to inspection Ears: external ears normal General nose exam: external nose normal Mouth: moist mucous membranes Eyes General: appearance normal, both eyes and all related structures Neck Neck: normal visual inspection Resp Effort & Inspection: normal respiratory effort and able to speak in complete sentences Cardio Rate: regular rate GI Palpation: soft and tender Skin General skin exam: no rashes or lesions noted Neuro General: patient alert and patient oriented x3 Extrem General: normal to inspection Psych Mental Status: mental status grossly normal Course Vital Signs Vital signs: Vital Signs Temperature 36.2 C L 10/19/20 23:35 Pulse 96 H 10/19/20 23:35 Respiratory Rate 18 10/19/20 23:35 Blood Pressure 107/61 10/19/20 23:35 Pulse Oximetry 99 10/19/20 23:35 Temperature 36.2 C L 10/19/20 23:35 Temperature Source Temporal Artery Scan 10/19/20 23:35 Pulse 96 H 10/19/20 23:35 Respiratory Rate 18 10/19/20 23:35 Respiratory Effort Non-Labored 10/19/20 23:37 Blood Pressure 107/61 10/19/20 23:35 Blood Pressure Position Sitting 10/19/20 23:35 Pulse Oximetry 99 10/19/20 23:35 Oxygen Delivery Method Room Air 10/19/20 23:35 Oxygen Flow Rate 0 10/19/20 23:35 Pain Level 7 10/19/20 23:35
[2020-10-19 23:57] LABS: Abs Immature Grans 0.02 10^3/uL (0.0-0.06); Absolute Basophil Count 0.03 10^3/uL (0.0-0.2); Absolute Eosinophil Count 0.34 10^3/uL (0.0-0.7); Absolute Lymphocyte Count 4.09 10^3/uL (1.2-3.4); Absolute Monocyte Count 0.69 10^3/uL (0.1-0.8); Absolute Neutrophil Count 4.65 10^3/uL (1.2-6.7); Basophils % 0.3; Eosinophils % 3.5; HCT 42.5 % (36.0-46.0); HGB 14.1 g/dL (11.2-15.7); Immature Grans % 0.2; Lymphocytes % 41.6; MCHC 33.2 % (32.0-36.0); MCV 84.3 fL (80-95); MPV 10.5 fL (8.0-11.0); Neutrophils % 47.4; Nucleated RBC 0 %; Platelet Count 276 10^3/uL (130-400); RBC 5.04 10^6/uL (3.93-5.22); RDW 12.1 % (11.7-14.6); RDW-SD 37.2 fL; WBC 9.82 10^3/uL (4.4-10.8)
[2020-10-20] MEDS: Ketorolac 15 MG/ML VIAL IVP
[2020-10-20 00:09] LABS: Bilirubin Negative (Negative); Blood Large (Negative); Clarity Clear (Clear); Glucose Negative (Negative); Ketones Negative (Negative); Leukocyte Esterase Small (Negative); Nitrite Negative (Negative); Specific Gravity 1.025 (1.005-1.025); Urobilinogen 0.2 EU/dL (Up TO 0.2)
[2020-10-20 00:10] LABS: Bilirubin, Direct 0.09 mg/dL (0.00-0.20)
[2020-10-20 00:11] LABS: PTT Activated 22.8 sec (21.0-27.5); Prothrombin Time 10.1 sec (9.3-11.0)
[2020-10-20 00:12] LABS: ALT 58 U/L (14-59); AST 33 U/L (15-37); Albumin 3.6 g/dL (3.4-5.0); Alkaline Phosphatase 56 U/L (46-116); Anion Gap 8.3 mmol/L (3-11); BUN 13 mg/dL (7-18); Bilirubin, Total 0.4 mg/dL (0.2-1.0); CO2 26.7 mmol/L (21.0-32.0); CREATININE 0.82 mg/dL (0.55-1.02); Calcium 9.2 mg/dL (8.5-10.1); Chloride 105 mmol/L (98-107); Glucose 99 mg/dL (74-106); Lipase 138 U/L (73-393); Magnesium 2.1 mg/dL (1.8-2.4); Potassium 3.1 mmol/L (3.5-5.1); Sodium 140 mmol/L (136-145); Total Protein 7.6 g/dL (6.4-8.2)
[2020-10-20] MEDS: Normal Saline Flush 10 ML SYR IVP (00:16)
[2020-10-20 00:17] LABS: Bacteria Negative HPF (Negative); C & S Indicated? Yes; Casts Negative LPF (Negative); Crystals Negative HPF (Negative); Epithelial Cells Few HPF (Negative); Mucus Negative (Negative); Other Cells Negative (Negative)
[2020-10-20] MEDS: Normal Saline - Diluent 50 ML VIAL IV (00:17)
[2020-10-20] MEDS: Omnipaque 350 MG/ML 100 ML BTL IJ (00:17)
[2020-10-20] MEDS: fentaNYL 100 MCG/2 ML VIAL 50 MCG IVP (00:44)
--- NOTE | 2020-10-20 00:50 | DI.VRAD_ITS ---
PROCEDURE INFORMATION: Exam: CT Abdomen And Pelvis With Contrast Exam date and time: 10/19/2020 12:15 AM Age: 25 years old Clinical indication: Abdominal pain; Localized; Other: Mid and upper abd pain x few hours; Patient HX: 2 weeks post TECHNIQUE: Imaging protocol: Computed tomography of the abdomen and pelvis with intravenous contrast. Radiation optimization: All CT scans at this facility use at least one of these dose optimization techniques: automated exposure control; mA and/or kV adjustment per patient size (includes targeted exams where dose is matched to clinical indication); or iterative reconstruction. Contrast material: [id number]; Contrast volume: 100 ml; Contrast route: INTRAVENOUS (IV); COMPARISON: CT ABD PELVIS WITH CONTRAST 01/15/2016 7:21 AM FINDINGS: Lungs: Lung bases clear. Liver: Normal appearing liver. Gallbladder and bile ducts: Moderate gallbladder distention. No calcified gallstones or biliary dilatation. Pancreas: Normal appearing pancreas. Spleen: Normal appearing spleen. Adrenal glands: Normal appearing adrenal glands. Kidneys and ureters: Normal appearing kidneys. No hydronephrosis. Stomach and bowel: No oral contrast. Stomach partially distended with fluid and ingested material. No small bowel dilatation to suggest obstruction. Normal-appearing colon. No evidence of diverticulitis or colitis. Appendix: Appendix fluid-filled and mildly dilated to 8 mm transverse dimension from its midportion to the appendiceal ostium with a 2 mm calcified appendicolith noted on image 35 of series 5. Upstream appendix normal in caliber from its midportion to the appendiceal tip measuring approximately 3-4 mm transverse dimension. No periappendiceal inflammatory change. Appendix similar in appearance on the comparison study from January 15, 2016. Intraperitoneal space: No gross ascites or free air. Vasculature: Normal caliber abdominal aorta. Lymph nodes: Clustered mildly enlarged lymph nodes in the right abdominal mesenteric, images 38-47 of series 4. Urinary bladder: Urinary bladder partially collapsed but grossly unremarkable, as seen. Reproductive: Grossly normal-appearing uterus. Ovaries partially obscured but normal in size. Bones/joints: No acute fracture seen among the bones of the abdomen or pelvis. Soft tissues: Diastasis recti. Small fat containing ventral hernia at the umbilicus. IMPRESSION: 1. Moderate gallbladder distention, nonspecific. No calcified gallstones or biliary dilatation. 2. Clustered mildly enlarged lymph nodes in the right abdominal mesentery. Although nonspecific, reactive nodes or mesenteric adenitis could have this appearance. 3. Appendix fluid-filled and dilated to 8 mm transverse dimension from its midportion to the appendiceal ostium with a 2 mm calcified appendicolith. Upstream appendix normal in caliber from its midportion to the appendiceal tip measuring approximately 3-4 mm transverse dimension. No periappendiceal inflammatory change. Although early or mild acute appendicitis could have this appearance, the appendix had a similar appearance on the prior exam from January 15, 2016. Clinical correlation is recommended as the imaging appearance is equivocal. Dictated and Authenticated by: Octavio Negro MD. Ordering:RADHA Patino MD
[2020-10-20 02:13] VITALS: BP 107/61; PULSE 96; RESP 18; TEMP 36.2; O2SAT 99
[2020-10-20] MEDS: Normal Saline 1,000 ML 150 ML IV (02:40)
[2020-10-20 02:41] VITALS: BP 109/63; PULSE 81; TEMP 36.6
[2020-10-20 07:40] VITALS: BP 109/71; PULSE 71; RESP 14; TEMP 36.6; O2SAT 98
--- NOTE | 2020-10-20 07:41 | GCONE_ITS ---
Date of service: 10/20/20 Time of Service: 07:41 Assessment and Plan Assessment and plan (1) Encounter for assessment: Status: Acute Assessment and plan: Patient 2 weeks status post normal spontaneous vaginal delivery. She had acute onset crampy abdominal pain and passage of one large clot. My impression is that her pain was related to the passing this clot. Bleeding has significantly subsided. She has no signs or symptoms of preeclampsia. She has no signs of [place] of endometritis. She is feeling well this morning. She does have chronic change of her appendix which is no different previous CT scans and mild dilation of the gallbladder without symptoms of cholelithiasis, or cholestasis. She is hungry this morning and is willing to try regular diet and anticipate discharge home today. She will be monitored closely. Signs and symptoms of infection, worsening abdominal pain were all explained to the patient. She will be seen back in the office in 2 weeks for her routine evaluation. (2) Abdominal pain: Status: Acute Assessment and plan: Significantly improved, suspicion is for uterine cramping with passing of clot versus subinvolution of the placental bed. History of Present Illness History of Present Illness Chief Complaint: Abdominal pain, 2 weeks Narrative: Patient is a 25-year-old female 1 para 1 who was seen in the emergency department yesterday. She is 2 weeks . She had been cared for with women's wellness through the [facility] service. She had normal spontaneous vaginal delivery after approximately 9 hours of labor without prolonged rupture of membranes. She states that she has been at home up until this point doing well, breast-feeding her daughter. Yesterday morning she awoke from her sleep with acute onset of abdominal pain. Pain she described as cramping similar to labor. At that point she passed a large clot and had some moderate bleeding that. For this reason she was concerned and presented to the emergency department. A full and thorough evaluation was performed in the emergency department including laboratory studies, vital signs, CT scan of the abdomen. Her CT scan revealed only chronic changes with the dilated appendix no different than previous CT performed a few years prior along with mild dilation of the gallbladder. Patient herself reports no nausea or vomiting, no fevers or chills, no sick contacts. After she did pass a clot, bleeding significantly decreased. She had tenderness in her mid abdomen and received IV pain medication in the emergency department. She was monitored overnight for observation with vital signs, and reevaluation this morning. This morning she is feeling significantly better, bleeding is light at best. Her only complaint is that of some mild abdominal tenderness significantly improved from yesterday. I spent 20 minutes in review of emergency department notes, laboratory studies, CT scan, examination of patient and evaluation. Review of Systems All systems reviewed & are unremarkable except as noted in HPI and below Constitutional Constitutional: Reports as per HPI, Denies body ache(s), Denies chills, Denies difficulty sleeping, Denies fatigue, Denies fever(s), Denies headache(s), Denies increased appetite and Denies night sweats Eyes Eyes: Reports system reviewed and no additional complaints, except as documented ENT Ears, Nose, Mouth, and Throat: Denies headache(s) Cardiovascular Cardiovascular: Reports system reviewed and no additional complaints, except as documented, Denies edema, Denies irregular heart rhythm and Denies dyspnea Respiratory Respiratory: Denies chest congestion, Denies cough and Denies dyspnea Gastrointestinal Gastrointestinal: Reports system reviewed and no additional complaints, except as documented, Reports abdominal pain, Denies bloating, Denies heartburn, Denies diarrhea, Denies loose stools, Denies nausea and Denies vomiting Genitourinary Genitourinary: Reports system reviewed and no additional complaints, except as documented Comments: Cramping abdominal pain and passing of a large clot yesterday as per history the present illness Neurologic Neurologic: Reports system reviewed and no additional complaints, except as documented and Denies headache(s) Psychiatric Psychiatric: Reports system reviewed and no additional complaints, except as documented Endocrine Endocrine: Denies fatigue [facility] Medical History Anxiety Bacterial vaginosis Depression Dysuria during in third trimester Interstitial cystitis Pilonidal abscess 05/16/2020 I&D and wound packed by general surgery. Pilonidal abscess Pilonidal cyst Recurrent tonsillitis Rh negative status during Size of fetus inconsistent with dates in third trimester Spontaneous onset of labor Vaginal discharge Vaginal discharge during Surgical History Tonsillectomy age 18yr wisdom teeth age 19yr Family History Maternal Uncle Throat cancer Maternal Aunt Thyroid cancer Other FHx: throat cancer Social History Smoking/Tobacco Use Status: Never Smoking risk assessment performed?: Yes Alcohol Intake: former Drug use: Never Substance use type: does not use Do you feel safe at home: Yes Do you feel safe in your relationship?: Yes History History 1 Para 1 Hx # Term Pregnancies 1 Multiple births 0 Hx # Pregnancies 0 Ectopic pregnancies 0 AB induced 0 Hx Number of Living Children 1 AB spontaneous 0 Past Pregnancies Del. Date GA/Weeks # Outcome Route Wgt Sex Labor Lgth Anesthes ia Location Prov [facility] 10/02/20 38 No Successful vaginal Female 8 hrs 34 min NATACHA Blair Delivery Date: 10/02/20 Sherrie King; Alvina Springer Exam Narrative Exam Narrative: Patient seen and examined this morning. She is comfortable, feeling well, in no acute distress Const General: cooperative, healthy appearing, comfortable, no acute distress, well developed and well groomed Nutritional Appearance: average body habitus and well nourished Orientation: alert and oriented x3 Eyes General: appearance normal, both eyes and all related structures Resp Effort & Inspection: normal respiratory effort Cardio Rate: regular rate Rhythm: regular rhythm GI Inspection: normal to inspection, non-distended and no scars Palpation: soft, not firm, no guarding, not rigid and nontender Auscultation: normal bowel sounds Skin General skin exam: no rashes or lesions noted Neuro General: patient alert Cognition: normal cognition Speech: speech normal Extrem General: normal to inspection, no clubbing, cyanosis or edema and no pedal edema Results Last Vital Signs Temp 97.9 F 10/20/20 07:40 Pulse 71 10/20/20 07:40 Resp 14 10/20/20 07:40 BP 109/71 10/20/20 07:40 Pulse Ox 98 10/20/20 07:40 Labs Result diagrams: 10/19/20 23:52 10/19/20 23:52 Labs: Laboratory Results - last 24 hr 10/19/20 10/19/20 10/19/20 00:00 23:52 23:52 WBC RBC Hgb Hct MCV MCH MCHC RDW Plt Count MPV Immature Gran % Neutrophils % Lymphocytes % Monocytes % Eosinophils % Basophils % Nucleated RBC % Absolute Neutrophils Absolute Lymphocytes Absolute Monocytes Absolute Eosinophils Absolute Basophils PT INR APTT Sodium 140 Potassium 3.1 L Chloride 105 Carbon Dioxide 26.7 Anion Gap 8.3 BUN 13 Creatinine 0.82 Estimated GFR/1.73 m2 >= 60.00 Glucose 99 Calcium 9.2 Magnesium 2.1 Total Bilirubin 0.4 Conjugated Bilirubin 0.09 AST 33 ALT 58 Alkaline Phosphatase 56 Total Protein 7.6 Albumin 3.6 Lipase 138 Urine Color Yellow Urine Clarity Clear Urine pH 6.0 Ur Specific [place] 1.025 Urine Protein Negative Urine Ketones Negative Urine Blood Large H Urine Nitrite Negative Urine Bilirubin Negative Urine Urobilinogen 0.2 Ur Leukocyte Esterase Small H Urine RBC 5-10 H Urine WBC 3-5 Ur Epithelial Cells Few Urine Crystals Negative Urine Bacteria Negative Urine Casts Negative Urine Mucus Negative Urine Other Negative Ur Culture Indicated? Yes Urine Glucose Negative 10/19/20 10/19/20 23:52 23:52 WBC 9.82 RBC 5.04 Hgb 14.1 Hct 42.5 MCV 84.3 MCH 28.0 MCHC 33.2 RDW 12.1 Plt Count 276 MPV 10.5 Immature Gran % 0.2 Neutrophils % 47.4 Lymphocytes % 41.6 Monocytes % 7.0 Eosinophils % 3.5 Basophils % 0.3 Nucleated RBC % 0 Absolute Neutrophils 4.65 Absolute Lymphocytes 4.09 H Absolute Monocytes 0.69 Absolute Eosinophils 0.34 Absolute Basophils 0.03 PT 10.1 INR 1.0 APTT 22.8 Sodium Potassium Chloride Carbon Dioxide Anion Gap BUN Creatinine Estimated GFR/1.73 m2 Glucose Calcium Magnesium Total Bilirubin Conjugated Bilirubin AST ALT Alkaline Phosphatase Total Protein Albumin Lipase Urine Color Urine Clarity Urine pH Ur Specific [place] Urine Protein Urine Ketones Urine Blood Urine Nitrite Urine Bilirubin Urine Urobilinogen Ur Leukocyte Esterase Urine RBC Urine WBC Ur Epithelial Cells Urine Crystals Urine Bacteria Urine Casts Urine Mucus Urine Other Ur Culture Indicated? Urine Glucose
--- NOTE | 2020-10-20 07:53 | W.PM.DS.N ---
Date of service: 10/20/20 Time of Service: 07:53 DS: Diagnosis Discharge Diagnosis (1) Encounter for assessment: Status: Acute Asessment and Plan: Patient seen and evaluated 2 weeks for acute onset of abdominal pain with passage of large clot. Past, pain is significantly diminished. Laboratory studies and imaging are all normal. She be discharged home today. (2) Abdominal pain: Status: Acute Discharge Plan Disposition Patient Disposition: HOME Condition: Stable Discharge Details Reason For Visit: ABDOMINAL PAIN Admit Date/Time: 10/20/20 01:11 Admit Provider: Alvina Duenas Attending Provider: Alvina Duenas Primary Care Provider: Karma Hunt V Hospital Course Hospital Course: Patient seen and evaluated the emergency department yesterday due to abdominal pain and passage of one large clot. Full and thorough evaluation including laboratory studies CT scan were all performed. She was observed overnight. She rested throughout the night. She awoke feeling better, hungry, ready for discharge home. Signs and symptoms of endometritis and preeclampsia were reviewed. She will be seen back in the office in 2 weeks with midwives as scheduled Home Meds and New Rx's Prescriptions: No Action prenat.vits,[id number],[id number] Tablet 1 tab PO DAILY RF: 0 Bio-K plus 50 billion cell capsule,delayed release(DR/EC) 1 cap PO DAILY RF: 0 Discharge Instructions Activity:: Activity as Tolerated Equipment/Supplies:: No Equipment Needed Diet:: As Tolerated Discharge Orders Discharge Orders: Discharge Order (Routine); Ordered 10/20/20 Ordered By: Alvina Duenas DS: Summary Status at Discharge Functional status at discharge: independent ambulation Overall status at discharge: patient is back to baseline Mental Status: mental status grossly normal Speech and Movement: speech and movement normal Mood: congruent mood Affect: normal affect Time Spent with Patient providing and/or coordinating discharge services: Less than 30 minutes Exam Narrative Exam Narrative: See note dated 10/20/2020 Psych Mental Status: mental status grossly normal Speech and Movement: speech and movement normal Mood: congruent mood Affect: normal affect DS: Data Vitals/I&O Vitals and I&O: Vital Signs Temperature 97.9 F 10/20/20 07:40 Temperature Source Oral 10/20/20 07:40 Pulse 71 10/20/20 07:40 Pulse Rhythm Regular 10/20/20 07:47 Respiratory Rate 14 10/20/20 07:40 Respiratory Effort 10/20/20 07:47 Respiratory Depth Normal 10/20/20 07:47 Respiratory Pattern Normal 10/20/20 07:47 Blood Pressure 109/71 10/20/20 07:40 Blood Pressure Position Sitting 10/19/20 23:35 Pulse Oximetry 98 10/20/20 07:40 Oxygen Delivery Method Room Air 10/20/20 07:40 Oxygen Flow Rate 0 10/20/20 07:40 Pain Level 2 10/20/20 02:41 Intake & Output 10/19/20 10/19/20 10/20/20 11:59 23:59 11:59 Intake Total 500 / 500 Balance 500 / 500 Weight 160 lb 160 lb Intake: IV 500 / 500 Data Completed and Pending Labs on day of discharge: Labs from last 24 hours 10/20/20 10/19/20 10/19/20 01:25 23:52 23:52 WBC 9.82 RBC 5.04 Hgb 14.1 Hct 42.5 MCV 84.3 MCH 28.0 MCHC 33.2 RDW 12.1 Plt Count 276 MPV 10.5 Immature Gran % 0.2 Neutrophils % 47.4 Lymphocytes % 41.6 Monocytes % 7.0 Eosinophils % 3.5 Basophils % 0.3 Nucleated RBC % 0 Absolute Neutrophils 4.65 Absolute Lymphocytes 4.09 H Absolute Monocytes 0.69 Absolute Eosinophils 0.34 Absolute Basophils 0.03 PT 10.1 INR 1.0 APTT 22.8 Sodium Potassium Chloride Carbon Dioxide Anion Gap BUN Creatinine Estimated GFR/1.73 m2 Glucose Calcium Magnesium Total Bilirubin Conjugated Bilirubin AST ALT Alkaline Phosphatase Total Protein Albumin Lipase Urine Color Urine Clarity Urine pH Ur Specific [place] Urine Protein Urine Ketones Urine Blood Urine Nitrite Urine Bilirubin Urine Urobilinogen Ur Leukocyte Esterase Urine RBC Urine WBC Ur Epithelial Cells Urine Crystals Urine Bacteria Urine Casts Urine Mucus Urine Other Ur Culture Indicated? Urine Glucose SARS-CoV-2 (PCR) Pending Nasopharyn COVID-19 PCR Pending Ref Test Perform Site Pending 10/19/20 10/19/20 10/19/20 23:52 23:52 00:00 WBC RBC Hgb Hct MCV MCH MCHC RDW Plt Count MPV Immature Gran % Neutrophils % Lymphocytes % Monocytes % Eosinophils % Basophils % Nucleated RBC % Absolute Neutrophils Absolute Lymphocytes Absolute Monocytes Absolute Eosinophils Absolute Basophils PT INR APTT Sodium 140 Potassium 3.1 L Chloride 105 Carbon Dioxide 26.7 Anion Gap 8.3 BUN 13 Creatinine 0.82 Estimated GFR/1.73 m2 >= 60.00 Glucose 99 Calcium 9.2 Magnesium 2.1 Total Bilirubin 0.4 Conjugated Bilirubin 0.09 AST 33 ALT 58 Alkaline Phosphatase 56 Total Protein 7.6 Albumin 3.6 Lipase 138 Urine Color Yellow Urine Clarity Clear Urine pH 6.0 Ur Specific [place] 1.025 Urine Protein Negative Urine Ketones Negative Urine Blood Large H Urine Nitrite Negative Urine Bilirubin Negative Urine Urobilinogen 0.2 Ur Leukocyte Esterase Small H Urine RBC 5-10 H Urine WBC 3-5 Ur Epithelial Cells Few Urine Crystals Negative Urine Bacteria Negative Urine Casts Negative Urine Mucus Negative Urine Other Negative Ur Culture Indicated? Yes Urine Glucose Negative SARS-CoV-2 (PCR) Nasopharyn COVID-19 PCR Ref Test Perform Site 10/19/20 00:00 Urine - Reflex from Urine Culture - Pending Preliminary micro results at discharge 10/19/20 00:00 Urine Culture - Pending Urine - Reflex from [facility] Medical History Anxiety Bacterial vaginosis Depression Dysuria during in third trimester Interstitial cystitis Pilonidal abscess 05/16/2020 I&D and wound packed by general surgery. Pilonidal abscess Pilonidal cyst Recurrent tonsillitis Rh negative status during Size of fetus inconsistent with dates in third trimester Spontaneous onset of labor Vaginal discharge Vaginal discharge during Surgical History Tonsillectomy age 18yr wisdom teeth age 19yr Family History Maternal Uncle Throat cancer Maternal Aunt Thyroid cancer Other FHx: throat cancer Social History Smoking/Tobacco Use Status: Never Smoking risk assessment performed?: Yes Alcohol Intake: former Drug use: Never Substance use type: does not use Do you feel safe at home: Yes Do you feel safe in your relationship?: Yes History History 1 Para 1 Hx # Term Pregnancies 1 Multiple births 0 Hx # Pregnancies 0 Ectopic pregnancies 0 AB induced 0 Hx Number of Living Children 1 AB spontaneous 0 Past Pregnancies Del. Date GA/Weeks # Outcome Route Wgt Sex Labor Lgth Anesthesia Location Prov [facility] 10/02/20 38 No Successful vaginal Female 8 hrs 34 min NATACHA Blair Delivery Date: 10/02/20 Sherrie King; Alvina Springer
[2020-10-20 19:48] LABS: COVID-19 RT-PCR UVMMC Result Negative (Negative)
== END 2020-10-20 09:30 | disposition home or self-care (01) ==
LOC: ER 10-20 02:19 → OBS 10-20 02:23
PROVIDERS: Admitting Provider Obstetrics & Gynecology; Emergency Provider Emergency Medicine; PCP Family Medicine; Visit Provider Obstetrics & Gynecology
DX: O72.2 Delayed and secondary postpartum hemorrhage (principal); R10.9 Unspecified abdominal pain
CPT/HCPCS: 36415; 80053; 81025; 83690; 96360; 96361; 96374; 96375; 99238; 99252; 99285; U0003; 74177; 81003; 81015; 82248; 83735; 85025; 85610; 85730; 87086; 99284; G0378; J1885; J3010; J3490

== ENCOUNTER 2020-10-25 01:05 | Emergency (ER) | payer OTHER, SELFPAY ==
[2020-10-25 01:10] VITALS: BP 99/87; PULSE 88; RESP 20; TEMP 36.8; O2SAT 99
--- NOTE | 2020-10-25 01:17 | ED.GENADUL_ITS ---
Discharge Plan Disposition Patient Disposition: HOME Condition: Good Discharge Details Clinical Impression: Abdominal pain Primary Care Provider: Karma Hunt V ED Provider: Rafa Trimble Meds and New Rx's Prescriptions: New famotidine 20 mg tablet 20 mg PO BID Qty: 30 RF: 0 Continued prenat.vits,jim,[id number] Tablet 1 tab PO DAILY RF: 0 Discharge Instructions Instructions: Biliary Colic (ED), Low Fat Diet (ED) Additional Instructions: It is likely that the pain is biliary colic as we discussed. Possibly related to acid reflux. We will start you on famotidine for reflux. It is safe with breast-feeding. We will have you follow-up with general surgery. Avoid fatty/greasy food. Return to the ED for severe persistent abdominal pain, fever, vomiting. Referrals: [facility] [Provider Group] Medical Decision Making <Sukumar Diego MD - Last Filed: 10/25/20 06:33> 25 yo female who is 2-3 weeks s/p vaginal delivery comes in with recurrent abdominal pain tonight. She was admitted for epigastric pain last week after ct and labs did not show a clear cause for her epigastric pain at that time, CT showed distended gallbladder but no other significant findings. She felt better that morning and left and had been pain free since but then again had recurrent epigastric pain after laying down for bed. She had one episode of n/v. She localizes the pain to the epigastric, has no ruq, luq or lower abdominal tenderness and no distention. I suspect possible gastritis and possible pancreatitis and less likely cholecystitis. Will obtain labs and treat with gi cocktail and reassess, given recent CT will try to avoid repeating this due to risks of radiation pt with no significant relief with gi cocktail and still has pain, initially declined toradol but now willing to take it. Labs show increased bilirbuin and ast/alt from last visit and also mild leukocytosis. On bedside u/s does now have what appears to be gallstones and I do not appreciate any significant pericholecystic fluid and negative jim's on my exam. Given locazlies pain do not feel repeat ct indicated but feel official u/s would be of benefit given continued pain and change in lft's. She was offered admission until u/s arrives vs staying in the ED until u/s can be done and she would prefer to stay in the ED. Will continue to monitor. pt feels significantly better after toradol, pain down to 2/10 in the epigastric area, will continue to monitor and reassess until u/s done later this morning. pt sleeping on reassessment with only mild pain when she awakens, mild tenderness in epigastric region, awaiting u/s pt signed out to oncoming provider pending u/s results and reassessment Differential Diagnosis Differential Diagnosis: gastritis, cholecystitis, pancretitis, ulcer <Rafa Trimble MD - Last Filed: 10/25/20 09:33> Patient signed out to me pending ultrasound this morning. Patient initially seen by Dr. Diego for recurrent severe upper abdominal pain. Please see his note for initial evaluation and plan. Patient found to have a slight bump in her liver function some right upper quadrant ultrasound obtained today. This does show gallstones but no evidence of acute cholecystitis. Liver is normal. Common bile duct normal. Patient has no pain currently. She had fried chicken last night for dinner. She does report history of reflux and indigestion. Currently not on any medications. She has breast-feeding. Will refer to surgery for further evaluation. Differential includes acid related disease versus biliary colic. Will place her on famotidine for possible acid related disease. We will have her avoid greasy fatty foods. Return to the ED for severe persistent abdominal pain, vomiting, fever, other concerns. Lab Data Lab results reviewed: Yes I reviewed the patient's lab results. HPI <Sukumar Diego MD - Last Filed: 10/25/20 06:33> General Mode of arrival: ambulatory . Date/Time Provider Initiated Documentation: 10/25/20 01:05 . Limitations to Documentation: no limitations . Information obtained by: patient . History of Present Illness 25 year old F presents to the emergency department with the chief complaint of abdominal pain, described as moderate, Quality is described as burning and sharp, and is localized to the abdomen. Patient reports no radiation. Patient started experiencing this hour(s) (1) and it has been constant. No relieving factors improve symptom(s), No exacerbating factors reported . Patient notes nausea/vomiting. Related Data Home Medications Medication Instructions Recorded Confirmed prenat.vits,jim,xqn-fwwp-ddoye 1 tab PO DAILY 03/09/20 10/25/20 famotidine 20 mg PO BID #30 tab 10/25/20 Previous Rx's Medication Instructions Recorded famotidine 20 mg PO BID #30 tab 10/25/20 Allergies Allergy/AdvReac Type Severity Reaction Status Date / Time No Known Drug Allergies Allergy Unverified 10/25/20 03:12 General BRITTANY: 3 Review of Systems <Sukumar Diego MD - Last Filed: 10/25/20 06:33> All systems reviewed & are unremarkable except as noted in HPI and below Constitutional Constitutional: Denies chills, Denies fever(s) and Denies weakness Cardiovascular Cardiovascular: Denies chest pain and Denies dyspnea Respiratory Respiratory: Denies cough and Denies dyspnea Genitourinary Genitourinary: Denies dysuria Musculoskeletal Musculoskeletal: Denies joint swelling Integumentary/Breasts Skin/Breast: Denies rash Neurologic Neurologic: Denies weakness PFSH <Sukumar Diego MD - Last Filed: 10/25/20 06:33> Medical History Anxiety Bacterial vaginosis Depression Dysuria during in third trimester Interstitial cystitis Pilonidal abscess 05/16/2020 I&D and wound packed by general surgery. Pilonidal abscess Pilonidal cyst Recurrent tonsillitis Rh negative status during Size of fetus inconsistent with dates in third trimester Spontaneous onset of labor Vaginal discharge Vaginal discharge during Surgical History Tonsillectomy age 18yr wisdom teeth age 19yr Family History Maternal Uncle Throat cancer Maternal Aunt Thyroid cancer Other FHx: throat cancer Social History Smoking/Tobacco Use Status: Never Smoking risk assessment performed?: Yes Alcohol Intake: former Drug use: Never Substance use type: does not use Do you feel safe at home: Yes Do you feel safe in your relationship?: Yes History History 1 Para 1 Hx # Term Pregnancies 1 Multiple births 0 Hx # Pregnancies 0 Ectopic pregnancies 0 AB induced 0 Hx Number of Living Children 1 AB spontaneous 0 Past Pregnancies Del. Date GA/Weeks # Outcome Route Wgt Sex Labor Lgth Anesthes ia Location Prov Complic 10/02/20 38 No Successful vaginal Female 8 hrs 34 min NATACHA Blair Delivery Date: 10/02/20 Sherrie King; Alvina Springer Exam <Sukumar Diego MD - Last Filed: 10/25/20 06:33> Const General: no acute distress Orientation: alert HENMT Head: normal to inspection Ears: external ears normal General nose exam: external nose normal Mouth: moist mucous membranes Eyes General: appearance normal, both eyes and all related structures Neck Neck: normal visual inspection Resp Effort & Inspection: normal respiratory effort and able to speak in complete sentences Cardio Rate: regular rate GI Palpation: soft Skin General skin exam: no rashes or lesions noted Neuro General: patient alert and patient oriented x3 Extrem General: normal to inspection Psych Mental Status: mental status grossly normal Sign Out <Sukumar Diego MD - Last Filed: 10/25/20 06:33> Sign Out Data: Sign Out Comment: 2.5 weeks post uncomplicated vaginal delivery and admitted last week with epigastric pain with unremarkable CT at the time, recurrent epigastric pain with wbc of 13 and mild increase in bilirubin, ast, alt. Gallstones on bedside u/s, pending official u/s. Last updated by Sukumar Diego MD at 10/25/20 03:43
[2020-10-25] MEDS: Ondansetron 4 MG/2 ML VIAL IVP (01:40)
[2020-10-25 01:53] LABS: Abs Immature Grans 0.04 10^3/uL (0.0-0.06); Absolute Basophil Count 0.04 10^3/uL (0.0-0.2); Absolute Eosinophil Count 0.39 10^3/uL (0.0-0.7); Absolute Lymphocyte Count 2.74 10^3/uL (1.2-3.4); Basophils % 0.3; Bilirubin Negative (Negative); Blood Trace-intact (Negative); Clarity Clear (Clear); Eosinophils % 2.8; Glucose Negative (Negative); HCT 44.3 % (36.0-46.0); HGB 14.7 g/dL (11.2-15.7); Immature Grans % 0.3; Ketones Negative (Negative); Leukocyte Esterase Small (Negative); Lymphocytes % 19.8; MCH 28.1 pg (27.0-33.0); MCHC 33.2 % (32.0-36.0); MCV 84.7 fL (80-95); MPV 10.8 fL (8.0-11.0); Monocytes % 6.1; Neutrophils % 70.7; Nitrite Negative (Negative); Nucleated RBC 0 %; Platelet Count 278 10^3/uL (130-400); RBC 5.23 10^6/uL (3.93-5.22); RDW 12.1 % (11.7-14.6); RDW-SD 37.2 fL; Specific Gravity >= 1.030 (1.005-1.025); Urobilinogen 0.2 EU/dL (Up TO 0.2); WBC 13.86 10^3/uL (4.4-10.8)
[2020-10-25 02:02] LABS: Absolute Monocyte Count 0.85 10^3/uL (0.1-0.8)
[2020-10-25 02:08] LABS: Bacteria Negative HPF (Negative); Epithelial Cells Moderate HPF (Negative); RBC 0-2 HPF (0-2)
[2020-10-25 02:09] LABS: C & S Indicated? No/Sq. Contamination; Casts Negative LPF (Negative); Crystals Negative HPF (Negative); Mucus Negative (Negative)
[2020-10-25 02:21] LABS: ALT 89 U/L (14-59); AST 86 U/L (15-37); Albumin 3.8 g/dL (3.4-5.0); Alkaline Phosphatase 86 U/L (46-116); BUN 11 mg/dL (7-18); Bilirubin, Direct 0.22 mg/dL (0.00-0.20); Bilirubin, Total 0.6 mg/dL (0.2-1.0); CREATININE 0.87 mg/dL (0.55-1.02); Calcium 9.3 mg/dL (8.5-10.1); Chloride 103 mmol/L (98-107); Glucose 105 mg/dL (74-106); Lipase 134 U/L (73-393); Potassium 3.1 mmol/L (3.5-5.1); Sodium 139 mmol/L (136-145); Total Protein 7.7 g/dL (6.4-8.2)
--- NOTE | 2020-10-25 02:30 | DI.US_ITS ---
EXAM: US ABDOMEN CLINICAL HISTORY: upper abdominal pain and elevated lft's TECHNIQUE: Ultrasound abdomen performed using standard protocol. COMPARISON: No exams were available for comparison FINDINGS: LIVER: Normal size and echogenicity. No focal liver lesions are seen.. GALLBLADDER: Multiple small stones. No evidence of wall thickening. No pericholecystic fluid identif ied. STERLING'S SIGN: Negative. BILIARY SYSTEM: No intrahepatic or extrahepatic biliary ductal dilation. KIDNEYS: Kidneys are symmetric in size. No evidence of renal calculi. No evidence of hydronephrosis. No renal mass or cyst identified. PANCREAS: Normal where visualized. SPLEEN: Not enlarged. ABDOMINAL AORTA AND IVC: Visualized portions normal caliber. ASCITES: None seen. IMPRESSION: Cholelithiasis. No evidence of acute cholecystitis. No biliary dilatation. DATA REPOSITORY:
--- NOTE | 2020-10-25 02:31 | NUR.NOTE ---
Pt declined toradol d/t , would need to pump and dump next few supplies. MD Diego aware.
[2020-10-25] MEDS: Ketorolac 15 MG/ML VIAL IVP (02:42)
[2020-10-25 03:09] VITALS: BP 96/55; PULSE 78; RESP 16; O2SAT 97
--- NOTE | 2020-10-25 03:23 | NUR.NOTE ---
Nursing Note:Breast pump given to patient. Borrowed from the .
[2020-10-25] MEDS: Normal Saline 1,000 ML 125 ML IV (04:15)
--- NOTE | 2020-10-25 09:55 | NUR.NOTE ---
referral to [facility] to f/u for biliary colic.Nursing Note:
[2020-10-25 10:10] VITALS: BP 107/62; PULSE 60; RESP 16; TEMP 36.8; O2SAT 97
== END 2020-10-25 10:05 | disposition home or self-care (01) ==
PROVIDERS: Emergency Medicine; Emergency Provider Emergency Medicine; PCP Family Medicine
DX: K21.9 Gastro-esophageal reflux disease without esophagitis (principal); K80.20 Calculus of gallbladder without cholecystitis without obstruction; R74.01 Elevation of levels of liver transaminase levels
CPT/HCPCS: 36415; 80053; 83690; 96361; 96374; 96375; 99284; 76700; 81003; 81015; 82248; 83735; 85025; J1885; J2405

== ENCOUNTER 2020-11-04 01:38 | Outpatient (CLI) | payer OTHER, SELFPAY ==
[2020-11-05 14:40] LABS: COVID-19 RT-PCR UVMMC Result Negative (Negative)
== END 2020-11-04 01:39 | disposition home or self-care (01) ==
LOC: LBO 01:38
PROVIDERS: PCP Family Medicine; Visit Provider Surgery
DX: Z20.828 Contact with and (suspected) exposure to other viral communicable diseases (principal); Z01.818 Encounter for other preprocedural examination
CPT/HCPCS: U0003

== ENCOUNTER 2020-11-09 08:42 | Day surgery (SDC) | payer OTHER, SELFPAY ==
[2020-11-09] VITALS (8 sets, daily range): BP systolic 81–97; BP diastolic 47–62; PULSE 64–93; RESP 17–22; TEMP 36.5–36.6; O2SAT 97–99
--- NOTE | 2020-11-09 07:02 | ROE_ITS ---
Date of service: 11/09/20 Time of Service: 12:05 Operative Note Operative Note DATE OF PROCEDURE: 11/09/20 PRE-OP DIAGNOSIS: Biliary Cholic POST-OP DIAGNOSIS: same PROCEDURE: Laparoscopic Cholecystectomy SURGEON: Caridad Patricia AMUSEMENT RIDE INSPECTOR: Mulu Hidalgo ANESTHESIA: GETA (ASA 2/Fredy Hernández CRNA) ESTIMATED BLOOD LOSS: 50 PATHOLOGY: other (Gallbladder and contents) COMPLICATIONS: None Patient was transported to: PACU Patient's condition: stable Indications: Ms Christensen is a pleasant 25-year-old female who is healthy and almost 1 month who has been having right upper quadrant and epigastric pain. Ultrasound shows stones. There is no pericholecystic fluid or gallbladder wall thickening. Her episodes happen after eating fatty foods. Her symptoms are consistent with biliary colic. We reviewed laparoscopic cholecystectomy. I went over risks and benefits using a pamphlet. We discussed postoperative recovery and pain control. We also reviewed Covid testing and quarantine requirements. We will proceed with laparoscopic cholecystectomy, possible cholangiogram, possibly open. Risks, benefits, complications were reviewed with the patient in the office. Complications include but are not limited to bleeding, infection, injury to stomach, small bowel and large bowel, injury to the pancreas, injury to the common bile duct necessitating drainage and referral to tertiary center for repair, bile leak, adverse reactions to the medications, complications of intubation including a sore throat or injury to the uvula, [place], stroke and even . Questions were entertained and answered to her satisfaction and she wished to proceed. No guarantees were given or implied. COVID-19 testing explained to the patient. Reason for test reviewed. Quarantine per state requirements reviewed with patient. Patient understands and agrees to testing. Findings: Adhesions between the Transverse colon and liver Procedure Description: After informed consent was obtained the patient was brought to the operating room, placed in a supine position and monitors were applied. SCDs were applied to her lower extremities and she was placed under general anesthesia and intubated without difficulty. Her abdomen was then prepped and draped in a sterile fashion using ChloraPrep. At this point a timeout was done and the patient's name, date of , procedure type, allergies to medications, metal in her body, antibiotic and DVT prophylaxis were reviewed. Fire risk was assessed. At this point 0.25 % Bupivocaine mixed 50/50 with exparel was injected just above the umbilicus into the dermis and subcutaneous tissue. A 5 mm incision was made with an 11 blade. The skin next to the incision was grasped with penetrating towel clamps and while pulling up on the skin a 5 mm port was placed under direct visualization. The abdomen was insuflated and then 3 more ports were placed. A 12 mm port was placed in the subxiphoid area and two 5 mm ports were placed in the right upper quadrant. The liver was inspected and looked normal. The patient's bed was then turned to the left and her head was brought up. The gallbladder was grasped at the body and pushed towards the right shoulder. The Transverse colon was noted to be adhered to the liver. Using a ligasure the transverse colon was carefully dissected away from the liver. There was some onemtum attached to the Gallbladder and this was taken down with the Ligasure. I was then able to visualize the neck of the Gallbladder. The neck was grasped and pulled towards the right flank and down allowing me to visualize the lymph node. Using a [place] dissector with cautery the lymph node was gently dissected away from the tissues and the fatty tissue was also dissected away. The cystic duct was identified it was normal in size. The duct was dissected 360 degrees using the [place] dissector in order for me to visualize its entrance into the gallbladder. Liver was noted behind it. There were no other structures right behind. Critical view was achieved. 3 clips were placed one proximal and 2 distal and the cystic duct was cut. The cystic artery was then identified and dissected 360 degrees. It was located just medial to the cystic duct. It was visualized going into the gallbladder. Once dissected 3 more clips were placed one proximal and 2 distal and the artery was cut. Using the hook dissector the gallbladder was then dissected away from the liver bed and placed into an Endo Catch bag and pulled through the 12 mm port site. The 12 mm port was placed back into the abdomen under direct visualization. The liver bed was inspected no bleeding was noted. The abdomen was then irrigated with a liter and a half of normal saline until the effluent was clear. Once all the fluid was suctioned out, 1% Lidocaine was injected above the liver to help with postoperative right shoulder pain. The 12 mm and the 2 right upper quadrant ports were removed under direct visualization and no bleeding was noted from the fascia. The abdomen was deflated completely and lastly the umbilical port was removed. The skin was cleaned and the incisions were closed with 4-0 Vicryl. The skin was dried and mastasol and steri-strips were applied over the closed incisions. Needle and sponge counts were correct at the end of the case. At this point the patient was woken up, extubated and taken back to recovery in stable condition. There were no immediate complications.
--- NOTE | 2020-11-09 07:06 | PDOC.DSDIS_ITS ---
Discharge Plan Disposition Patient Disposition: HOME Condition: Good Discharge Details Reason For Visit: Laparoscopic Cholecystectomy Attending Provider: Caridad Patricia Primary Care Provider: Karma Hunt V Home Meds and New Rx's Prescriptions: New oxycodone 5 mg tablet 5 mg PO Q6H PRNQty: 10 RF: 0 Continued prenat.vits,jim,[id number]-ldnhh Tablet 1 tab PO DAILY RF: 0 famotidine 20 mg tablet 20 mg PO BID Qty: 30 RF: 0 Discharge Instructions Instructions: Laparoscopic Cholecystectomy (DC) Additional Instructions: Activity at Home after surgery: 1. Make sure you walk outside at least 4 times per day 2. You should be able to climb a flight of stairs 3. No driving while in pain or taking pain medications 4. No strenuous activity or heavy lifting for 2 weeks (laparoscopic surgery) Diet, Nutrition, & wound healin. Avoid alcohol until after you are recovered from your surgery 2. Make sure to eat plenty of lean protein (meat, fish, eggs, cottage cheese, beans) 3. Eat a variety of fruits and vegetables. Eat plenty of high fiber alireza ds to avoid constipation. 4. Drink plenty of liquids to stay hydrated and avoid constipation Pain Medications: 1. Tylenol 650 mg every 6 hours as needed and Ibuprofen 600 mg every 6 hours as needed. You may alternate between the two medications every 3 hours 2. If a narcotic has been prescribed take as directed only for breakthrough pain If you are taking narcotics then please pump and dump until no longer taking narcotic pain medications. For Constipation: 1. Take Milk of Magnesia or MiraLax as needed for constipation Other: 1. You may shower daily. Do not scrub the incisions 2. Do not soak the incisions for 1 week 3. You may alternate ice and heat as needed for pain and swelling Wound Care: 1. Keep the incisions clean and dry Please call our office if you develop: 1. Fevers >101.5 2. Nausea or Vomiting 3. Worsening pain 4. Redness and thick discharge from the wounds If after hours please call the Hospital at and ask to speak to the on-call surgeon Referrals: Caridad Patricia MD [ [facility] STAFF [facility]YSICIAN] - 11/22/20 1:00 pm Activity:: no lifting >20 lb Diet:: As Tolerated Discharge Orders Discharge Orders: Discharge Order (Routine); Ordered 11/09/20 Ordered By: Caridad Patricia
[2020-11-09] MEDS: Lactated Ringers 1,000 ML 80 ML IV (09:33)
[2020-11-09 10:28] LABS: HCG Quant, Pregnancy 1 mIU/mL (1-3)
[2020-11-09] MEDS: AMPICILLIN/SULBACTAM 3 GM in Normal Saline 100 ML IVPB (11:45)
[2020-11-09] MEDS: Lidocaine 1% Multi-Dose 50 ML VIAL (12:00)
[2020-11-09] MEDS: Bupivacaine 0.25% Pres-Free 30 ML VIAL (12:10)
--- NOTE | 2020-11-09 13:00 | GB_PTH ---
PATIENT: Hilda King LOC: [facility] U#:[id number] AGE/SX: 25/F ROOM: RE11/09/[address]: Caridad Patricia MD : 1995 BED: DIS: 11/09/2020 SPEC #: [id number] RECD: 11/09/20 17:40 STATUS: FENG REQ #: [id number] URSULA: 11/09/20 13:[address]: Caridad Patricia DEPT: Surgical Specimen RECD BY: Aditi Ovalles ENTERED: 11/09/20 17:40 SP TYPE: GB OTHR DR: Karma Hunt V Tissues: 1 - GALLBLADDER Procedures: GROSS AND MICRO LEVEL 3 Comments: [id number]
[2020-11-09] MEDS: fentaNYL 100 MCG/2 ML VIAL IVP (14:20)
== END 2020-11-09 15:50 | disposition home or self-care (01) ==
LOC: SUR 08:42
PROVIDERS: Nurse Anesthetist, Certified Registered; PCP Family Medicine; Visit Provider Surgery
PROC: 0FT44ZZ Resection of Gallbladder, Percutaneous Endoscopic Approach (ICD-10-PCS; CPT 47562; principal; 2020-11-09 08:45)
DX: K80.10 Calculus of gallbladder with chronic cholecystitis without obstruction (principal)
CPT/HCPCS: 47562; 84702; 88304; J0295; J1100; J1885; J2001; J2405; J3010; J3475

== ENCOUNTER 2020-11-14 13:40 | Outpatient (REF) | payer OTHER, SELFPAY ==
--- NOTE | 2020-11-14 11:00 | PAPFT_PTH ---
PATIENT: Hilda King LOC: [facility] U#:[id number] AGE/SX: 25/F ROOM: RE11/14/[address]: Melissa Gongora CNM : 1995 BED: DIS: 11/14/2020 SPEC #: [id number] RECD: 11/14/20 17:59 STATUS: FENG RESpring #: [id number] URSULA: 11/14/20 11:[address]: Melissa Gongora DEPT: [facility] Cytology RECD BY: Aditi Ovalles ENTERED: 11/14/20 17:59 SP TYPE: PAPFT OTHR DR: Karma Hunt V Tissues: 1 - CX/ENDOCX FOR PAP SMEARS Procedures: PAP THIN PREP/UVM Screening Comments: [id number]
== END 2020-11-14 13:41 | disposition home or self-care (01) ==
LOC: LBN 13:40
PROVIDERS: PCP Family Medicine; Visit Provider Advanced Practice Midwife
DX: N90.89 Other specified noninflammatory disorders of vulva and perineum (principal); Z12.4 Encounter for screening for malignant neoplasm of cervix
CPT/HCPCS: 88142; 87480; 87510; 87660

== ENCOUNTER 2020-12-14 06:23 | Day surgery (SDC) | payer OTHER, SELFPAY ==
[2020-12-14 06:33] VITALS: BP 100/62; PULSE 96; RESP 16; TEMP 36.4; O2SAT 97
--- NOTE | 2020-12-14 06:40 | W.PM.OP ---
Date of service: 12/14/20 Time of Service: 08:49 Operative Note Operative Note DATE OF PROCEDURE: 12/14/20 PRE-OP DIAGNOSIS: Recurrent infected pilonidal cysts POST-OP DIAGNOSIS: same PROCEDURE: Pilonidal cyst excision SURGEON: Caridad Patricia CIGARETTE MAKING MACHINE CATCHER: Mulu Hidalgo ANESTHESIA TYPE: Local By Surgeon (Exparel mixed with 0.25% Bupivocaine) and Spinal (ASA /) Refer to Anesthesia Record ESTIMATED BLOOD LOSS: 20 PATHOLOGY: other (tissue) COMPLICATIONS: None Patient was transported to: same day Patient's condition: stable Implants: None Indications: Hilda is a pleasant 25-year-old female who is . While she had 3 pilonidal cyst abscesses which had to be drained. She is currently also status post laparoscopic cholecystectomy for biliary colic which also started while . She has recovered well from her laparoscopic cholecystectomy. We discussed a pilonidal cyst excision. I also discussed the risk of wound dehiscence which unfortunately is quite high with the surgery. If the wound dehiscence it is a long course of packing the wound until it has healed. This can go on for a few months. She understands and would like to proceed with excision of her pilonidal cyst. We discussed doing this under spinal anesthesia with a little bit of MAC. I would then also infiltrated the area with Exparel at the end to keep her more comfortable postoperatively. Again Covid testing and quarantine requirements were reviewed. Risks, benefits, complications were reviewed with her. Complications include but are not limited to bleeding, infection, wound dehiscence, development of a chronic nonhealing wound and adverse reaction to the medications. Questions were entertained and answered to her satisfaction and she wished to proceed. COVID-19 testing explained to the patient. Reason for test reviewed. Quarantine per state requirements reviewed with patient. Patient understands and agrees to testing. Findings: Scar tissue was identified underneath the small punctate areas. In the most superior portion of the incision there was a cyst which was completely excised. No here was identified with in the cavity. Procedure Description: After informed consent was obtained the patient was taken to the operating room and placed in a sitting position on the operating room table. Anesthesia then performed a spinal anesthetic. Once that was in place the patient was placed in a prone position on the bed. Monitors were applied and the patient was sedated. At this point a timeout was done. The patient's name, date of , allergies to medications, procedure to be performed, antibiotic prophylaxis and DVT prophylaxis were reviewed. Fire risk was assessed. Next the lower back and gluteal area was prepped and draped in a sterile surgical fashion. The midline was inspected and 3 small punctate areas were identified. The dermis and subcutaneous tissue treated with a mixture of Exparel and quarter percent bupivacaine plain. An elliptical incision was then made around the pump date areas measuring about 5 cm in length and about 0.4 cm in width. Dissection was done with cautery down to the coccyx. There was a lot of scar tissue identified. In the most superior portion of the incision there was a cyst identified. The cyst was completely excised. The tissue was removed from the operating field and sent to pathology. The cavity was then irrigated with some normal saline. Small amount of bleeding was identified and this was cauterized. Once the wound was clean and dry it was closed in 4 layers. The first 3 layers were closed with interrupted 2-0 Vicryl sutures. The dermis was then reapproximated with horizontal mattress sutures with 2-0 Prolene. The skin was then cleaned and dried. A small miguel dressing was then applied over the sutures and secured. The miguel was turned on and there was a good seal. The patient was then woken up and turned onto the gurney in a supine position. The patient tolerated the procedure well. Instrument needle and sponge counts were correct at the end of the case.
--- NOTE | 2020-12-14 06:42 | W.PM.DSUDISC ---
Discharge Plan Disposition Patient Disposition: HOME Condition: Good Discharge Details Reason For Visit: excision of pilonidal cyst Attending Provider: Caridad Patricia Primary Care Provider: Karma Hunt V Home Meds and New Rx's Prescriptions: New oxycodone 5 mg tablet 5 mg PO Q6H PRNQty: 14 RF: 0 acetaminophen [Tylenol] 325 mg capsule 650 mg PO Q6H PRNQty: 30 RF: 0 ibuprofen 600 mg tablet 600 mg PO Q6H PRNQty: 30 RF: 1 Continued norethindrone-e.estradiol-iron [Loestrin Fe 10/19 (28-Day)] 1 mg-20 mcg (21)/75 mg (7) tablet 1 tab PO DAILY Qty: 84 RF: 4 prenat.vits,jim,nbr-pqxr-ljrwu Tablet 1 tab PO DAILY RF: 0 Hair, Skin and Nails Advanced 3.3 mg iron-25 mcg Tablet 1 tab PO DAILY RF: 0 Discharge Instructions Instructions: Pilonidal Cyst Excision (DC) Additional Instructions: Activity at Home after surgery: 1. Make sure you walk outside at least 4 times per day 2. You should be able to climb a flight of stairs 3. No driving while in pain or taking pain medications 4. No strenuous activity or heavy lifting for 4 weeks (open surgery) 5. No squatting 6. Sitting as little as possible Diet, Nutrition, & wound healin. Avoid alcohol until after you are recovered from your surgery 2. Make sure to eat plenty of lean protein (meat, fish, eggs, cottage cheese, beans) 3. Eat a variety of fruits and vegetables. Eat plenty of high fiber foods to avoid constipation. 4. Drink plenty of liquids to stay hydrated and avoid constipation Pain Medications: 1. Tylenol 650mg every 6 hours as needed and Ibuprofen 600 mg every 6 hours as needed. You may alternate between the 2 medications every 3 hours 2. If a narcotic has been prescribed take as directed only for breakthrough pain For Constipation: 1. Take Milk of Magnesia or MiraLax as needed for constipation Other: 1. You may shower daily. Do not scrub the incisions 2. Do not soak the incisions for 1 week 3. You may alternate ice and heat as needed for pain and swelling Wound Care: 1. Keep the incisions clean and dry Please call our office if you develop: 1. Fevers >101.5 2. Nausea or Vomiting 3. Worsening pain 4. Redness and thick discharge from the wounds If after hours please call the Hospital at and ask to speak to the on-call surgeon Referrals: Caridad Patricia MD [ [facility] STAFF PHYSICIAN] - 12/20/20 1:30 pm Activity:: Activity as Tolerated Diet:: high Fiber diet Discharge Orders Discharge Orders: Discharge Order (Routine); Ordered 12/14/20 Ordered By: Caridad Patricia
[2020-12-14] MEDS: Lactated Ringers 1,000 ML 80 ML IV (06:59)
[2020-12-14] MEDS: Acetaminophen 500 MG TAB 1000 MG PO (07:09)
[2020-12-14] MEDS: Celecoxib 200 MG CAP PO (07:09)
[2020-12-14] MEDS: ceFAZolin 2 GM/50 ML BAG IVPB (07:38)
--- NOTE | 2020-12-14 08:00 | PILONIDAL_PTH ---
PATIENT: Hilda King LOC: [facility] U#:[id number] AGE/SX: 25/F ROOM: RE12/14/[address]: Caridad Patricia MD : 1995 BED: DIS: 12/14/2020 SPEC #: [id number] RECD: 12/14/20 12:32 STATUS: FENG RESpring #: [id number] URSULA: 12/14/20 08:[address]: Caridad Patricia DEPT: Surgical Specimen RECD BY: Aditi Ovalles ENTERED: 12/14/20 12:32 SP TYPE: PILONIDAL OTHR DR: Karma Hunt V Tissues: 1 - PILONIDAL CYST/SINUS Procedures: GROSS AND MICRO LEVEL 3 Comments: [id number]
[2020-12-14] MEDS: Bupivacaine 0.25% Pres-Free 30 ML VIAL (08:22)
[2020-12-14 09:19] VITALS: BP 99/65; PULSE 70; RESP 16; TEMP 36.8; O2SAT 98
== END 2020-12-14 10:30 | disposition home or self-care (01) ==
PROVIDERS: PCP Family Medicine; Visit Provider Surgery
PROC: (CPT 11770; principal; 2020-12-14 07:30)
DX: L05.91 Pilonidal cyst without abscess (principal); F32.9 Major depressive disorder, single episode, unspecified; F41.9 Anxiety disorder, unspecified
CPT/HCPCS: 11770; 81025; 88304; J0690; J1885; J2250; J2405

== ENCOUNTER 2021-10-02 17:47 | Outpatient (REF) | payer SELFPAY | END 2021-10-02 17:48 | disposition home or self-care (01) | LOC: NCHCN 17:47 | PROVIDERS: PCP Family Medicine; Visit Provider Nurse Practitioner Family | DX: J02.9 Acute pharyngitis, unspecified (principal) | CPT/HCPCS: 87070 ==

== ENCOUNTER 2022-01-09 21:40 | Emergency (ER) | payer BC, SELFPAY ==
--- NOTE | 2022-01-09 22:15 | DI.CT_ITS ---
Exam(s) CT ABDOMEN PELVIS W EXAM: CT ABDOMEN PELVIS W CLINICAL HISTORY: abdominal pain. TECHNIQUE: Imaging Protocol: Axial computed tomography images with coronal and sagittal reformatted images were created and reviewed CONTRAST MATERIAL: Intravenous: Omnipaque 350 Contrast volume:100 ml Oral: yes / no COMPARISON: CT CT ABDOMEN PELVIS W from 10/20/2020 FINDINGS: ABDOMEN: Lung Bases: Normal where visualized. Liver: Normal density. No measurable mass. Gallbladder and biliary tract: Status post cholecystectomy. No radiodense calculus or dilation. Pancreas: Normal density, no abnormal calcifications or inflammatory process. Stomach and bowel no ab normal dilatation. No wall thickening. Spleen: Normal. Kidneys: Normal size, contour and axis. No radiodense stones or obstructive uropathy. No masses seen. Adrenal glands: No masses seen. Abdominal Aorta: Abdominal portion non-dilated. PELVIS: Bladder: No gross wall thickening. No calculi.No focal mass. Bowel: No obstruction or bowel wall thickening. Appendix normal.No appendicoliths visible on today's exam. Peritoneal cavity: No ascites, collection.. Bones: Within normal limits for age. Reproductive organs: Within normal limits. Vaginal tampon. Lymph nodes: Mildly prominent mesenteric lymph nodes, increased from prior... Impression: Mildly prominent mesenteric lymph nodes. Findings could represent mesenteric adenitis. RADIATION DOSE DELIVERED: 806.56mGy.cm Total DLP DATA REPOSITORY: All CT scans at this facility are submitted to the National Radiology Data Registry (NRDR) Dose Index Registry (DIR) with the [employer] (ACR). RADIATION OPTIMIZATION: All CT scans at this facility use at least one of these dose optimization te chniques: automated exposure control; mA and/or kV adjustment per patient size (includes targeted exa ms where dose is matched to clinical indication); or iterative reconstruction.
--- NOTE | 2022-01-09 22:17 | ED.GENADUL_ITS ---
Discharge Plan Disposition Patient Disposition: HOME Condition: Stable Discharge Details Clinical Impression: Abdominal pain, Enteritis Primary Care Provider: Karma Hunt V ED Provider: Sukumar Diego Home Meds and New Rx's Prescriptions: New ondansetron 4 mg tablet,disintegrating 4 mg PO Q8H PRN (Reason: nausea and vomiting) Qty: 30 0RF Discharge Instructions Instructions: Abdominal Pain (ED) Additional Instructions: Your cat scan showed nonspecific inflammation of the bowel, no appendicitis or bowel blockage you can take over the counter pepto bismol or mylanta along with tylenol, follow dosing instructions on packaging if symptoms continue follow up with your primary care provider within a week if you feel more ill, have persistent vomit or severe worsening pain return to the emergency department Medical Decision Making 26 yo female with hx of prior cholecystectomy in 10/2020, denies prior abdominal surgeries, comes in with chief complaint of abdominal pain. She states she felt well all day until around 7pm tonight when she had sudden onset of upper abdominal pain. She also had n/v. Denies chest pain, dyspnea, lower abdomen pain, fevers or chills. She appears in pain though is stable on exam. She localizes the pain to the upper abdomen and is tender to the ruq, epigastric region and luq no lower abdomen tenderness and no significant distention. Concern for sbo vs pancreatitis, will obtain cat scan along with labs including lipase. Pain is reproducible on exam and has no chest pain so doubt acs at this time. labs show no acute abnormalities, ct shows no sbo but does show enteritis with reactive mesneteric inflammation. She is feeling significantly better on reassessment and has minimal epigastric tenderness with deep palpation, tolerating po. She feels well enough to go home which I feel is reasonable given improved symptoms and reassuring ct and labs. Advised to f/u with pcp and return precautions given Differential Diagnosis Differential Diagnosis: sbo, pancreatitis, ileus Medical Records Medical records reviewed: Yes I reviewed the patient's medical records. Imaging Data Radiologic Study: Attestation: I personally reviewed and interpreted this imaging study as follows: Imaging: CT Scan Radiologist's impression: IMPRESSION: Moderate-severe enteritis with reactive mesenteric inflammation and lymphadenopathy. Lab Data Lab results reviewed: Yes I reviewed the patient's lab results. HPI General Mode of arrival: ambulatory . Date/Time Provider Initiated Documentation: 01/09/22 21:52 . Limitations to Documentation: no limitations . Information obtained by: patient . History of Present Illness 26 year old F presents to the emergency department with the chief complaint of abdominal pain, described as moderate, Quality is described as stabbing, and is localized to the abdomen. Patient reports no radiation. Patient started experiencing this hour(s) (3) and it has been intermittent. improves with No relieving factors improve symptom(s), No exacerbating factors reported . Patient notes nausea/vomiting; denies chest pain and fever/chills. Patient did receive the following treatments prior to arrival, none Related Data Home Medications Medication Instructions Recorded Confirmed ondansetron 4 mg disintegrating 4 mg PO Q8H PRN #30 tab 01/09/22 tablet Previous Rx's Medication Instructions Recorded ondansetron 4 mg disintegrating 4 mg PO Q8H PRN #30 tab 01/09/22 tablet Allergies Allergy/AdvReac Type Severity Reaction Status Date / Time No Known Drug Allergies Allergy Unverified 01/09/22 22:29 General BRITTANY: 3 Review of Systems All systems reviewed & are unremarkable except as noted in HPI and below Constitutional Constitutional: Denies chills, Denies fever(s) and Denies weakness Eyes Eyes: Denies loss of vision Cardiovascular Cardiovascular: Denies chest pain and Denies dyspnea Respiratory Respiratory: Denies cough and Denies dyspnea Genitourinary Genitourinary: Denies dysuria Neurologic Neurologic: Denies loss of vision and Denies weakness PFSH All Active Problems (Updated 01/09/22 @ 23:23 by Sukumar Diego MD) Abdominal pain (Acute) Enteritis (Acute) DUB (dysfunctional uterine bleeding) (Acute) associated with combined oral contraceptive pill Encounter for examination following surgery (Acute) Oral contraception initial prescription (Acute) Vulvar irritation (Acute) Pilonidal cyst (Acute) Anxiety (Chronic) Depression (Chronic) Interstitial cystitis (Acute) Medical History Anxiety Bacterial vaginosis Biliary colic s/p Lap. Eduarda Bunion of right foot (06/13/15) s/p steroid injection x 2 Depression Dysuria during in third trimester Hallux valgus (acquired), right foot (01/19/16) Hypertrophy of tonsils with hypertrophy of adenoids (06/26/12) Infectious mononucleosis (06/26/12) Interstitial cystitis Molluscum contagiosum infection (11/24/13) Pilonidal abscess 05/16/2020 I&D and wound packed by general surgery. Pilonidal cyst Recurrent tonsillitis Rh negative status during Rubella non-immune status, antepartum Size of fetus inconsistent with dates in third trimester Spontaneous onset of labor Tailor's bunion of right foot (01/19/16) Vaginal discharge Vaginal discharge during Surgical History H/O foot surgery R foot bunion surgery History of excision of pilonidal cyst (~12/14/20) S/P laparoscopic cholecystectomy (~11/09/20) Tonsillectomy age 18yr wisdom teeth age 19yr Family History Maternal Uncle Throat cancer Maternal Aunt Thyroid cancer Other FHx: throat cancer Social History Smoking/Tobacco Use Status: Never Smoking risk assessment performed?: Yes Alcohol Intake: former Drug use: Never Substance use type: does not use Current gender identity: female Do you feel safe at home: Yes Do you feel safe in your relationship?: Yes History History 1 Para 1 Hx # Term Pregnancies 1 Multiple births 0 Hx # Pregnancies 0 Ectopic pregnancies 0 AB induced 0 Hx Number of Living Children 1 AB spontaneous 0 Past Pregnancies Del. Date GA/Weeks # Outcome Route Wgt Sex Labor Lgth [facility]20 38 No Successful vaginal Female 8 hrs 34 min [facility] Delivery Date: 10/02/20 Last Updated by: FELIPE Jimenez; Exam Const General: no acute distress Orientation: alert [facility] Head: normal to inspection Ears: external ears normal General nose exam: external nose normal Mouth: moist mucous membranes Eyes General: appearance normal, both eyes and all related structures Neck Neck: normal visual inspection Resp Effort & Inspection: normal respiratory effort and able to speak in complete sentences Cardio Rate: regular rate GI Palpation: soft and tender Skin General skin exam: no rashes or lesions noted Neuro General: patient alert and patient oriented x3 Extrem General: normal to inspection Psych Mental Status: mental status grossly normal
[2022-01-09 22:20] LABS: Abs Immature Grans 0.03 10^3/uL (0.0-0.06); Absolute Eosinophil Count 0.16 10^3/uL (0.0-0.7); Absolute Lymphocyte Count 1.74 10^3/uL (1.2-3.4); Basophils % 0.4; Eosinophils % 1.4; HCT 43.4 % (36.0-46.0); HGB 14.4 g/dL (11.2-15.7); Immature Grans % 0.3; Lymphocytes % 15.4; MCH 27.1 pg (27.0-33.0); MCHC 33.2 % (32.0-36.0); MCV 81.6 fL (80-95); MPV 10.2 fL (8.0-11.0); Monocytes % 7.1; Neutrophils % 75.4; Nucleated RBC 0 %; Platelet Count 277 10^3/uL (130-400); RBC 5.32 10^6/uL (3.93-5.22); RDW-SD 38.4 fL; WBC 11.33 10^3/uL (4.4-10.8)
[2022-01-09 22:21] LABS: Absolute Basophil Count 0.05 10^3/uL (0.0-0.2); Absolute Neutrophil Count 8.54 10^3/uL (1.2-6.7)
[2022-01-09 22:24] VITALS: BP 112/59; PULSE 101; RESP 20; TEMP 36.8; O2SAT 97
[2022-01-09] MEDS: Ketorolac 15 MG/ML VIAL IVP (22:24)
[2022-01-09] MEDS: Ondansetron 4 MG/2 ML VIAL IVP (22:24)
[2022-01-09] MEDS: Omnipaque 350 MG/ML 100 ML BTL IJ (22:30)
[2022-01-09] MEDS: Normal Saline Flush 10 ML SYR IVP (22:32)
[2022-01-09 22:35] LABS: Bilirubin Negative (Negative); Blood Trace-intact (Negative); Clarity Clear (Clear); Glucose Negative (Negative); Ketones 80 mg/dL (Negative); Leukocyte Esterase Negative (Negative); Nitrite Negative (Negative); Specific Gravity 1.025 (1.005-1.025); Urobilinogen 0.2 EU/dL (Up TO 0.2)
[2022-01-09 22:41] LABS: ALT 46 U/L (14-59); AST 53 U/L (15-37); Albumin 4.5 g/dL (3.4-5.0); Alkaline Phosphatase 44 U/L (46-116); Anion Gap 10.6 mmol/L (3-11); BUN 17 mg/dL (7-18); Bilirubin, Direct 0.2 mg/dL (0.0-0.2); Bilirubin, Total 0.9 mg/dL (0.2-1.0); CO2 24.4 mmol/L (21.0-32.0); CREATININE 0.8 mg/dL (0.55-1.02); Calcium 9.2 mg/dL (8.5-10.1); Chloride 104 mmol/L (98-107); Glucose 129 mg/dL (74-106); Lipase 76 U/L (73-393); Magnesium 2.2 mg/dL (1.8-2.4); Potassium 3.4 mmol/L (3.5-5.1); Sodium 139 mmol/L (136-145); Total Protein 8.3 g/dL (6.4-8.2)
[2022-01-09 22:46] LABS: Bacteria Few HPF (Negative); C & S Indicated? No; Casts Negative LPF (Negative); Crystals Negative HPF (Negative); Epithelial Cells Moderate HPF (Negative); Mucus Moderate (Negative)
--- NOTE | 2022-01-09 23:14 | DI.VRAD_ITS ---
PROCEDURE INFORMATION: Exam: CT Abdomen And Pelvis With Contrast Exam date and time: 01/09/2022 10:36 PM Age: 26 years old Clinical indication: Other: Abdominal pain TECHNIQUE: Imaging protocol: Computed tomography of the abdomen and pelvis with contrast. Radiation optimization: All CT scans at this facility use at least one of these dose optimization techniques: automated exposure control; mA and/or kV adjustment per patient size (includes targeted exams where dose is matched to clinical indication); or iterative reconstruction. Contrast material: OMNIPAQUE 350; Contrast volume: 87 ml; Contrast route: INTRAVENOUS (IV); COMPARISON: CT ABDOMEN PELVIS W 10/20/2020 12:18 AM FINDINGS: Lungs: Lung bases are clear. Liver: Normal. No mass. Gallbladder and bile ducts: The gallbladder is surgically absent. Negative for biliary ductal dilatation. Pancreas: Normal. No ductal dilation. Spleen: Normal. No splenomegaly. Adrenal glands: Normal. No mass. Kidneys and ureters: Negative for hydronephrosis. Symmetric renal enhancement. Nondilated ureters. No stones observed. Stomach and bowel: Unremarkable stomach. Nondilated small bowel. Fat planes around loops of small bowel are indistinct. Wall thickening noted through most of the small bowel. Unremarkable terminal ileum. There are no inflammatory changes observed around the colon. Appendix: Normal appendix. Intraperitoneal space: Mild mesenteric fat stranding. No significant free fluid. Negative for free air. Negative for abscess. Arteries: Unremarkable. No abdominal aortic aneurysm. Lymph nodes: Mesenteric lymph nodes are moderately prominent. Negative for pathologic retroperitoneal lymphadenopathy. Urinary bladder: Collapsed urinary bladder. No abnormalities. Reproductive: Unremarkable uterus. Negative for adnexal mass or cyst. Bones/joints: Unremarkable. No acute fracture. Soft tissues: Unremarkable. IMPRESSION: Moderate-severe enteritis with reactive mesenteric inflammation and lymphadenopathy. Dictated and Authenticated by: Sukumar Akhtar MD. Ordering:RADHA Patino MD
[2022-01-09 23:32] VITALS: BP 97/57; PULSE 104; RESP 18; O2SAT 97
[2022-01-09] MEDS: Ondansetron O.D.T. 4 MG TABEF, 3 TABS/BTL PO (23:32)
== END 2022-01-09 23:33 | disposition home or self-care (01) ==
PROVIDERS: Emergency Provider Emergency Medicine; PCP Family Medicine
DX: K52.9 Noninfective gastroenteritis and colitis, unspecified (principal); Z90.49 Acquired absence of other specified parts of digestive tract
CPT/HCPCS: 36415; 80053; 81025; 83690; 96374; 96375; 99285; 74177; 81003; 81015; 82248; 83735; 85025; 99284; J1885; J2405; J3490

== ENCOUNTER 2022-09-09 20:56 | Emergency (ER) | payer MEDICAID, SELFPAY ==
[2022-09-09 21:08] VITALS: BP 96/55; PULSE 119; RESP 15; TEMP 37.3; O2SAT 98
--- NOTE | 2022-09-09 21:14 | W.ED.GENAD ---
Discharge Plan Disposition Patient Disposition: Home Condition: Good Discharge Details Clinical Impression: Viral URI with cough, Influenza A Primary Care Provider: Karma Hunt V ED Provider: Marcus Ventura Home Meds and New Rx's Prescriptions: New oseltamivir [Tamiflu] 75 mg capsule 75 mg PO BID 5 Days Qty: 10 0RF No Action ondansetron 4 mg tablet,disintegrating 4 mg PO Q8H PRN (Reason: nausea and vomiting) Qty: 30 0RF Discharge Instructions Instructions: Upper Respiratory Infection (ED) Additional Instructions: At this time your symptoms are consistent with a viral upper respiratory infection. I suspect that you have influenza. I will call you with your results. If your results are positive for flu then I will call in a prescription for Tamiflu for you. In the meantime please continue to take Tylenol and Motrin as needed for fever. Drink plenty of fluids and stay well-hydrated. Drink 10 to 12 cups of fluid per day. If you notice any worsening of your symptoms, or any new symptoms such as vomiting, diarrhea, fever, chills, shortness of breath, chest pain, numbness, weakness, or fainting , please return immediately to the emergency department for reevaluation. Please follow up with your primary care provider as soon as possible for reassessment and reevaluation. As always, it was a pleasure participating in your medical care today. Stand Alone Forms: Work Release Referrals: Karma Hunt MD [Primary Care Provider] - Medical Decision Making 27-year-old female with no significant past medical history presents today for evaluation of fever, chills, cough, headache, myalgias. Is been present for the last 24 hours. 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 She denies any vomiting or diarrhea. She has last taken an NSAID earlier this morning. She has not received her flu shot this year. No other complaints at this time. No other modifying factors. Physical exam demonstrates clear lung sounds, vital signs stable aside from mild tachycardia, afebrile here. No evidence of otitis media or meningeal signs. Symptoms appear consistent with a viral etiology. She was tested for flu., Flu came back positive for flu a, however there was a laboratory complication and we are not able to formally post those results. COVID and RSV were negative. I did call in Tamiflu for the patient, I did call her and informed her of her laboratory results. Patient otherwise stable. No indication for antibiotics as there is no clinical evidence of pneumonia at this time. I have extensively reviewed the treatment plan and discharge instructions with the patient and their family. I have addressed all patient concerns at this time. The patient and family was made aware of what symptoms to monitor for that would warrant a return to the emergency department. Discussed the plan with the patient and family, they demonstrate verbal understanding and agreement with our assessment and plan at this time. The documentation in this chart was dictated using [employer] dictation software. Please excuse any dictation errors. Sign Out No HPI General Date/Time Provider Initiated Documentation: 09/09/22 21:02. HPI Narrative: 27-year-old female with no significant past medical history presents today for evaluation of fever, chills, cough, headache, myalgias. Is been present for the last 24 hours. 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 She denies any vomiting or diarrhea. She has last taken an NSAID earlier this morning. She has not received her flu shot this year. No other complaints at this time. No other modifying factors. Related Data Home Medications Medication Instructions Recorded Confirmed ondansetron 4 mg disintegrating 4 mg PO Q8H PRN nausea and 01/09/22 tablet vomiting #30 tabs oseltamivir 75 mg capsule (Tamiflu) 75 mg PO BID 5 days #10 caps 09/09/22 Previous Rx's Medication Instructions Recorded ondansetron 4 mg disintegrating 4 mg PO Q8H PRN nausea and 01/09/22 tablet vomiting #30 tabs oseltamivir 75 mg capsule (Tamiflu) 75 mg PO BID 5 days #10 caps 09/09/22 Allergies Allergy/AdvReac Type Severity Reaction Status Date / Time No Known Drug Allergies Allergy Unverified 01/09/22 22:29 General Stated Complaint: GenMedical BRITTANY: 4 Review of Systems All systems reviewed & are unremarkable except as noted in HPI and below PFSH All Active Problems (Updated 09/09/22 @ 22:48 by Marcus Ventura DO) Viral URI with cough (Acute) Influenza A (Acute) DUB (dysfunctional uterine bleeding) (Acute) associated with combined oral contraceptive pill Encounter for examination following surgery (Acute) Oral contraception initial prescription (Acute) Vulvar irritation (Acute) Pilonidal cyst (Acute) Anxiety (Chronic) Depression (Chronic) Interstitial cystitis (Acute) Medical History Bacterial vaginosis Biliary colic s/p Lap. Eduarda Bunion of right foot (06/13/15) s/p steroid injection x 2 Dysuria during in third trimester Hallux valgus (acquired), right foot (01/19/16) Hypertrophy of tonsils with hypertrophy of adenoids (06/26/12) Infectious mononucleosis (06/26/12) Molluscum contagiosum infection (11/24/13) Pilonidal abscess 05/16/2020 I&D and wound packed by general surgery. Recurrent tonsillitis Rh negative status during Rubella non-immune status, antepartum Size of fetus inconsistent with dates in third trimester Spontaneous onset of labor Tailor's bunion of right foot (01/19/16) Vaginal discharge Vaginal discharge during Surgical History H/O foot surgery R foot bunion surgery History of excision of pilonidal cyst (~12/14/20) S/P laparoscopic cholecystectomy (~11/09/20) Tonsillectomy age 18yr wisdom teeth age 19yr Family History Maternal Uncle Throat cancer Maternal Aunt Thyroid cancer Other FHx: throat cancer Social History Smoking/Tobacco Use Status: Never Smoking risk assessment performed?: Yes Alcohol Intake: former Drug use: Never Substance use type: does not use Current gender identity: female Do you feel safe at home: Yes Do you feel safe in your relationship?: Yes History History 1 Para 1 Hx # Term Pregnancies 1 Multiple births 0 Hx # Pregnancies 0 Ectopic pregnancies 0 AB induced 0 Hx Number of Living Children 1 AB spontaneous 0 Past Pregnancies Del. Date GA/Weeks # Preg Succ Route Wgt Sex Labor Lgth Anesthesia Location Prov Complic 10/02/20 38 No vaginal Female 8 hrs 34 min [facility] Delivery Date: 10/02/20 Last Updated by: FELIPE Jimenez Monique King; Exam Narrative Exam Narrative: 1.Const: Well-nourished, Well-developed, appearing stated age 2.Eyes: PERRL, no conjunctival injection, and symmetrical lids. 3.ENT: Atraumatic external nose and ears. Moist MM. Neck: Symmetric, trachea midline, No thyromegaly. No meningeal signs. No evidence of otitis media. 4.CVS: +S1/S2, No murmurs or gallops. Peripheral pulses 2+ and equal in all extremities. Brisk capillary refill in all extremities. 5.RESP: Unlabored respiratory effort. Clear to auscultation bilaterally. No wheezes rales or rhonchi 6.GI: Soft, Nontender/Nondistended, No hepatosplenomegaly. No guarding or rebound. 7.MSK: Normocephalic/Atraumatic, Extremities w/o deformity or ttp No cyanosis or clubbing, Normal movement of all extremities 8.Skin: Warm, Dry. No rashes or lesions. 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 Sensation grossly intact, no focal neurologic deficits. 10.Psych: (AAO) x3. Appropriate mood and affect Course Vital Signs Vital signs: Vital Signs Temperature 37.3 C 09/09/22 21:08 Pulse 119 H 09/09/22 21:08 Respiratory Rate 15 09/09/22 21:08 Blood Pressure 96/55 L 09/09/22 21:08 Pulse Oximetry 98 09/09/22 21:08 Temperature 37.3 C 09/09/22 21:08 Temperature Source Oral 09/09/22 21:08 Pulse 119 H 09/09/22 21:08 Respiratory Rate 15 09/09/22 21:08 Blood Pressure 96/55 L 09/09/22 21:08 Blood Pressure Position Sitting 09/09/22 21:08 Pulse Oximetry 98 09/09/22 21:08 Oxygen Delivery Method Room Air 09/09/22 21:08 Oxygen Flow Rate 0 09/09/22 21:08 Pain Level 0 09/09/22 21:08
[2022-09-09] MEDS: Ketorolac 30 MG/ML VIAL IM (21:23)
[2022-09-09 21:24] VITALS: RESP 16
[2022-09-09 21:26] LABS: Source Nasal/Nares
[2022-09-09 21:57] LABS: COVID-19 PCR Negative (Negative)
== END 2022-09-09 21:22 | disposition home or self-care (01) ==
PROVIDERS: Emergency Provider Student in an Organized Health Care Education/Training Program; PCP Family Medicine
DX: J06.9 Acute upper respiratory infection, unspecified (principal); J10.1 Influenza due to other identified influenza virus with other respiratory manifestations
CPT/HCPCS: 87635; 87637; 96372; 99284; 99283; J1885

== ENCOUNTER 2024-08-10 18:19 | Outpatient (REF) | payer OTHER, SELFPAY ==
[2024-08-10 19:20] LABS: Abs Immature Grans 0.01 10^3/uL (0.0-0.06); Absolute Basophil Count 0.03 10^3/uL (0.0-0.2); Absolute Eosinophil Count 0.29 10^3/uL (0.0-0.7); Absolute Lymphocyte Count 2.69 10^3/uL (1.2-3.4); Absolute Monocyte Count 0.58 10^3/uL (0.1-0.8); Absolute Neutrophil Count 4.66 10^3/uL (1.2-6.7); Basophils % 0.4 %; Eosinophils % 3.5 %; HCT 37.4 % (36.0-46.0); HGB 12.5 g/dL (11.2-15.7); Immature Grans % 0.1 %; Lymphocytes % 32.6 %; MCH 28.1 pg (27.0-33.0); MCHC 33.4 % (32.0-36.0); MCV 84 fL (80-95); MPV 10.9 fL (8.0-11.0); Neutrophils % 56.4 %; Platelet Count 259 10^3/uL (130-400); RBC 4.45 10^6/uL (3.93-5.22); RDW 12.4 % (11.7-14.6); RDW-SD 37.2 fL; WBC 8.26 10^3/uL (4.4-10.8)
[2024-08-10 19:55] LABS: Iron 32 ug/dL (50-170); Total Iron Binding Capacity 274 ug/dL (250-450); Transferrin Sat 12 % (15-50)
[2024-08-10 19:56] LABS: Ferritin 28 ng/mL (8-252)
== END 2024-08-10 18:20 | disposition home or self-care (01) ==
LOC: NCHCN 18:19
PROVIDERS: PCP Family Medicine; Visit Provider Nurse Practitioner Family
DX: D64.9 Anemia, unspecified (principal)
CPT/HCPCS: 82728; 83540; 83550; 85025